=== PATIENT | female | born 1970 | race Caucasian/White ===

== ENCOUNTER 2016-10-20 08:30 | Emergency (ER) | payer OTHER ==
[2016-10-20] MEDS ORDERED: IBUPROFEN 600 MG TAB PO STA (09:12)
[2016-10-20] MEDS ORDERED: ONDANSETRON 4 MG ODT STARTER PACK 2 TAB BTL PO STA (09:23)
[2016-10-20] MEDS ORDERED: ACETAMINOPHEN TAB 500 MG TAB PO STA (09:27)
--- NOTE | 2016-10-20 09:28 | ED ---
General Adult HPI - General Chief complaint: ENT Stated complaint: Throat pain,allergic reaction Time Seen by Provider: 10/20/16 08:57 Source: patient, RN notes reviewed Mode of arrival: ambulatory Limitations: no limitations - History of Present Illness Initial comments: Patient 45-year-old female who presents emergency room today with chief complaint of upper respiratory symptoms over the last 2 days. She does admit that it started 2 days ago with a sore throat. Does admit to some cough congestion. States increased nasal congestion. She states she's not having much drainage. She does admit to body aches and chills. States she was unaware that she had a fever. States she's not had any Tylenol Motrin today. Does admit that she feeling nauseous. Patient denies any other complaints or symptoms. Patient denies any recent fever, chills, shortness of breath, chest pain, back pain, abdominal pain, vomiting, numbness or tingling, dysuria or hematuria, constipation or diarrhea, neck pain or stiffness visual changes, or any other complaints. - Related Data Home Medications Medication Instructions Recorded Confirmed Lisinopril [Zestril] 10 mg PO DAILY 12/22/15 10/20/16 Multivitamins, Thera [Multivitamin] 1 tab PO DAILY 12/22/15 10/20/16 Previous Rx's Medication Instructions Recorded Oseltamivir [Tamiflu] 75 mg PO Q12HR 5 Days 10/20/16 Allergies Allergy/AdvReac Type Severity Reaction Status Date / Time amoxicillin Allergy Swelling Verified 10/20/16 09:07 amoxicillin trihydrate Allergy Swelling Verified 10/20/16 09:07 [From Augmentin] potassium clavulanate Allergy Swelling Verified 10/20/16 09:07 [From Augmentin] codeine AdvReac Unknown Verified 10/20/16 09:07 Review of Systems ROS Statement: Those systems with pertinent positive or pertinent negative responses have been documented in the HPI. ROS Other: All systems not noted in ROS Statement are negative. Past Medical History Past Medical History: No Reported History History of Any Multi-Drug Resistant Organisms: None Reported Past Surgical History: Section Additional Past Surgical History / Comment(s): e-sure ablation Past Psychological History: No Psychological Hx Reported Smoking Status: Former smoker Past Alcohol Use History: None Reported Past Drug Use History: None Reported General Exam - General Exam Comments Initial Comments: General: The patient is awake and alert, in no distress, and does not appear acutely ill. Eye: Pupils are equal, round and reactive to light, extra-ocular movements are intact. No nystagmus. There is normal conjunctiva bilaterally. No signs of icterus. Ears, nose, mouth and throat: There are moist mucous membranes and no oral lesions. Neck: The neck is supple, there is no tenderness or JVD. Cardiovascular: There is a regular rate and rhythm. No murmur, rub or gallop is appreciated. Respiratory: Lungs are clear to auscultation, respirations are non-labored, breath sounds are equal. No wheezes, stridor, rales, or rhonchi. Gastrointestinal: Soft, non-distended, non-tender abdomen without masses or organomegaly noted. There is no rebound or guarding present. No CVA tenderness. Bowel sounds are unremarkable. Musculoskeletal: Normal ROM, no tenderness. Strength 5/5. Sensation intact. Pulses equal bilaterally 2+. Neurological: A&O x 3. CN II-XII intact, There are no obvious motor or sensory deficits. Coordination appears grossly intact. Speech is normal. Skin: Skin is warm and dry and no rashes or lesions are noted. Psychiatric: Cooperative, appropriate mood & affect, normal judgment. Limitations: no limitations Course Vital Signs 10/20/16 10/20/16 08:38 10:44 Temperature 100.8 F H 98.7 F Pulse Rate 102 H 95 Respiratory 22 14 Rate Blood Pressure 128/58 101/53 O2 Sat by Pulse 96 94 L Oximetry Medical Decision Making - Medical Decision Making Patient reexamined the symptoms and signs of distress. Patient influenza negative. Strep test negative. Patient will be covered for influenza with Tamiflu. Advised to follow-up with family doctor next 2 days. Advised to use Tylenol/ibuprofen for pain and fever as needed. Advised return to emergency room if any symptoms increase or worsen. - Lab Data Lab Results 10/20/16 Range/Units 09:30 Influenza Type A RNA Not Detected (Not Detectd) Influenza Type B (PCR) Not Detected (Not Detectd) Group A Strep Rapid Negative (Negative) Disposition Clinical Impression: Influenza Disposition: HOME SELF-CARE Condition: Good Instructions: Influenza (ED) Additional Instructions: Please use medication as discussed. Please follow-up with family doctor in the next 2 days of symptoms have not improved. Please return to emergency room if the symptoms increase or worsen or for any other concerns. Prescriptions: Oseltamivir [Tamiflu] 75 mg PO Q12HR 5 Days Time of Disposition: 11:10
[2016-10-20 11:28] VITALS: BP 119/57; PULSE 97; RESP 15; TEMP 98.4
== END 2016-10-20 11:27 | disposition home or self-care (01) ==
LOC: EC 08:30
DX: J11.1 Influenza due to unidentified influenza virus with other respiratory manifestations (principal); Z87.891 Personal history of nicotine dependence; Z79.899 Other long term (current) drug therapy; Z88.0 Allergy status to penicillin; Z88.5 Allergy status to narcotic agent
CPT/HCPCS: 99283; 87081; 87430; 87502; S0119

== ENCOUNTER 2016-10-21 19:02 | Emergency (ER) | payer OTHER ==
[2016-10-21] MEDS ORDERED: SODIUM CHLORIDE 0.9% 1,000 ML IV STA ×2 (19:23)
[2016-10-21] MEDS ORDERED: methylPREDNISolone SOD SUCCI 125 MG/2 ML VIAL IV STA (19:25)
[2016-10-21] MEDS ORDERED: ACETAMINOPHEN TAB 500 MG TAB PO STA (19:25)
[2016-10-21] MEDS ORDERED: ONDANSETRON 4 MG/2 ML VIAL IVP STA (19:26)
--- NOTE | 2016-10-21 19:26 | ED ---
General Adult HPI - General Chief complaint: Nausea/Vomiting/Diarrhea Stated complaint: near syncope, ent, fever Time Seen by Provider: 10/21/16 19:08 Source: EMS, RN notes reviewed Mode of arrival: EMS Limitations: no limitations - History of Present Illness Initial comments: Patient 45-year-old female who presents emergency room today by EMS, with chief complaint of increased cough congestion over the last 3 days. Patient does admit to sore throat. States hurts when she swallows. Patient mitts increase rhinorrhea and sinus pressure and Headache today. Patient states earlier today sitting on the couch when to get up and experienced increased to lightheadedness dizziness and passed out. Patient states still feeling a little dizzy at this time. Denies any other complaints. Admits that appetites been decreased due to sore throat. - Related Data Home Medications Medication Instructions Recorded Confirmed Lisinopril-Hctz 10-12.5 mg 1 tab PO DAILY 10/21/16 10/21/16 [Zestoretic 10-12.5] Multivitamin [Multivitamins Adult 1 tab PO DAILY 10/21/16 10/21/16 Gummies] Previous Rx's Medication Instructions Recorded Oseltamivir [Tamiflu] 75 mg PO Q12HR 5 Days 10/20/16 Sulfamethox-Tmp 800-160Mg [Bactrim 1 tab PO Q12HR #20 tab 10/21/16 DS 800-160 mg] predniSONE 20 mg PO DIRECTED #11 tab 10/21/16 Allergies Allergy/AdvReac Type Severity Reaction Status Date / Time amoxicillin trihydrate Allergy Anaphylaxis Verified 10/21/16 20:28 [From Augmentin] codeine Allergy Unknown Verified 10/21/16 20:28 Childhood ibuprofen [From Motrin] Allergy Anaphylaxis Verified 10/21/16 20:28 potassium clavulanate Allergy Anaphylaxis Verified 10/21/16 20:28 [From Augmentin] Review of Systems ROS Statement: Those systems with pertinent positive or pertinent negative responses have been documented in the HPI. ROS Other: All systems not noted in ROS Statement are negative. Past Medical History Past Medical History: No Reported History History of Any Multi-Drug Resistant Organisms: None Reported Past Surgical History: Section Additional Past Surgical History / Comment(s): e-sure ablation Past Psychological History: No Psychological Hx Reported Smoking Status: Former smoker Past Alcohol Use History: None Reported Past Drug Use History: None Reported General Exam - General Exam Comments Initial Comments: General: The patient is awake and alert, in no distress, and does not appear acutely ill. Eye: Pupils are equal, round and reactive to light, extra-ocular movements are intact. No nystagmus. There is normal conjunctiva bilaterally. No signs of icterus. Ears, nose, mouth and throat: There are moist mucous membranes and no oral lesions. Neck: The neck is supple, there is no tenderness or JVD. Cardiovascular: There is a regular rate and rhythm. No murmur, rub or gallop is appreciated. Respiratory: Lungs are clear to auscultation, respirations are non-labored, breath sounds are equal. No wheezes, stridor, rales, or rhonchi. Gastrointestinal: Soft, non-distended, non-tender abdomen without masses or organomegaly noted. There is no rebound or guarding present. No CVA tenderness. Bowel sounds are unremarkable. Musculoskeletal: Normal ROM, no tenderness. Strength 5/5. Sensation intact. Pulses equal bilaterally 2+. Neurological: A&O x 3. CN II-XII intact, There are no obvious motor or sensory deficits. Coordination appears grossly intact. Speech is normal. Skin: Skin is warm and dry and no rashes or lesions are noted. Psychiatric: Cooperative, appropriate mood & affect, normal judgment. Limitations: no limitations Course Vital Signs 10/21/16 10/21/16 19:11 21:12 Temperature 100 F H 98.7 F Pulse Rate 113 H 87 Respiratory 20 16 Rate Blood Pressure 132/66 131/61 O2 Sat by Pulse 91 L 95 Oximetry Medical Decision Making - Medical Decision Making Patient reexamined at this time shows no signs of stress. Does admit that she' s feeling better after steroids given here in the emergency room. Patient was given a bolus. Patient's labs been reviewed are unremarkable. Patient's vitals improved. Patient declined EKG. Patient states she is feeling better will be discharged home at this time. Patient will be continued on steroids for inflammation. Patient be placed on antibiotics of Bactrim to cover for possible sinus infection. Patient was advised most likely viral illness. Patient advised follow-up the family doctor over the next 2 days. Advised return here in the emergency room symptoms increase or worsen or for any other concerns. - Lab Data Result diagrams: 10/21/16 19:55 10/21/16 19:55 Lab Results 10/21/16 10/21/16 Range/Units 19:55 19:55 WBC 10.6 (3.8-10.6) k/uL RBC 4.21 (3.80-5.40) m/uL Hgb 12.9 (11.4-16.0) gm/dL Hct 38.1 (34.0-46.0) % MCV 90.6 (80.0-100.0) fL MCH 30.7 (25.0-35.0) pg MCHC 33.9 (31.0-37.0) g/dL RDW 13.2 (11.5-15.5) % Plt Count 177 (150-450) k/uL Neutrophils % 82 % Lymphocytes % 7 % Monocytes % 7 % Eosinophils % 0 % Basophils % 0 % Neutrophils # 8.8 H (1.3-7.7) k/uL Lymphocytes # 0.7 L (1.0-4.8) k/uL Monocytes # 0.8 (0-1.0) k/uL Eosinophils # 0.0 (0-0.7) k/uL Basophils # 0.0 (0-0.2) k/uL Sodium 135 L (137-145) mmol/L Potassium 3.8 (3.5-5.1) mmol/L Chloride 100 (98-107) mmol/L Carbon Dioxide 24 (22-30) mmol/L Anion Gap 11 mmol/L BUN 11 (7-17) mg/dL Creatinine 0.52 (0.52-1.04) mg/dL Est GFR (MDRD) Af Amer >60 (>60 ml/min/1.73 sqM) Est GFR (MDRD) Non-Af >60 (>60 ml/min/1.73 sqM) Glucose 120 H (74-99) mg/dL Calcium 8.6 (8.4-10.2) mg/dL Total Bilirubin 0.5 (0.2-1.3) mg/dL AST 22 (14-36) U/L ALT 35 (9-52) U/L Alkaline Phosphatase 73 (38-126) U/L Total Protein 6.5 (6.3-8.2) g/dL Albumin 3.4 L (3.5-5.0) g/dL Disposition Clinical Impression: Acute sinusitis Disposition: HOME SELF-CARE Condition: Good Instructions: Sinusitis (ED) Additional Instructions: Please use medication as discussed. Please follow-up with family doctor in the next 2 days. Please return to emergency room if the symptoms increase or worsen or for any other concerns. Prescriptions: Sulfamethox-Tmp 800-160Mg [Bactrim DS 800-160 mg] 1 tab PO Q12HR #20 tab predniSONE 20 mg PO DIRECTED #11 tab Time of Disposition: 21:42
[2016-10-21 20:23] LABS: Basophils % (A) 0 %; CH 31.5; CHCM 34.9; Eosinophils % (A) 0 %; HCT 38.1 % (34.0-46.0); HDW 2.73; HGB 12.9 gm/dL (11.4-16.0); Luc # (Auto) 0.34; Luc % (Auto) 3; Lymphocytes # (A) 0.7 k/uL (1.0-4.8); Lymphocytes % (A) 7 %; MCH 30.7 pg (25.0-35.0); MCHC 33.9 g/dL (31.0-37.0); MCV 90.6 fL (80.0-100.0); Mean Platelet Volume 7.1; Monocytes # (A) 0.8 k/uL (0-1.0); Monocytes % (A) 7 %; Neutrophils # (A) 8.8 k/uL (1.3-7.7); Neutrophils % (A) 82 %; RBC 4.21 m/uL (3.80-5.40); RDW 13.2 % (11.5-15.5); WBC 10.6 k/uL (3.8-10.6); WBC (Perox) 11.13
--- NOTE | 2016-10-21 20:24 | XR ---
EXAMINATION TYPE: XR chest 2V DATE OF EXAM: 10/21/2016 8:18 PM COMPARISON: April 26, 2012 HISTORY: Cough and fever TECHNIQUE: Frontal and lateral views of the chest are obtained. FINDINGS: There is no focal air space opacity, pleural effusion, or pneumothorax seen. The cardiac silhouette size is within normal limits. The osseous structures are intact. IMPRESSION: No acute cardiopulmonary process.
[2016-10-21 20:28] LABS: ALT 35 U/L (9-52); AST 22 U/L (14-36); Alkaline Phosphatase 73 U/L (38-126); Anion Gap 11 mmol/L; Blood Urea Nitrogen 11 mg/dL (7-17); Calcium 8.6 mg/dL (8.4-10.2); Carbon Dioxide 24 mmol/L (22-30); Chloride 100 mmol/L (98-107); Glucose 120 mg/dL (74-99); Non-African American GFR(MDRD) >60 (>60 ml/min/1.73 sqM); Potassium 3.8 mmol/L (3.5-5.1); Sodium 135 mmol/L (137-145); Total Bilirubin 0.5 mg/dL (0.2-1.3); Total Protein 6.5 g/dL (6.3-8.2)
[2016-10-21 21:14] VITALS: RESP 16
[2016-10-21] MEDS ORDERED: SULFAMETH-TMP DS STARTER PACK 2 TAB BTL PO STA (21:41)
[2016-10-21 22:15] VITALS: BP 108/56; PULSE 79; TEMP 98.1
== END 2016-10-21 22:16 | disposition home or self-care (01) ==
LOC: EC 19:02
DX: J01.90 Acute sinusitis, unspecified (principal); R42 Dizziness and giddiness; Z87.891 Personal history of nicotine dependence; Z79.899 Other long term (current) drug therapy; Z88.0 Allergy status to penicillin; Z88.5 Allergy status to narcotic agent; Z88.6 Allergy status to analgesic agent
CPT/HCPCS: 99284; 96374; 96375; 96361; 36415; 80053; 85025; 87040; 71020; J2930; J2405

== ENCOUNTER 2017-01-06 12:18 | Emergency (ER) | payer OTHER ==
[2017-01-06 12:27] VITALS: BP 152/71; PULSE 101; RESP 18; TEMP 98
[2017-01-06] MEDS ORDERED: DIPH,PERTUS(ACELL)TETVAC-LF 0.5 ML VIAL IM ONE (12:32)
--- NOTE | 2017-01-06 12:39 | ED ---
General Adult HPI - General Chief complaint: Skin/Abscess/Foreign Body Stated complaint: Fishing Hook In Thumb Time Seen by Provider: 01/06/17 12:28 Source: patient, RN notes reviewed Mode of arrival: ambulatory Limitations: no limitations - History of Present Illness Initial comments: Patient 46-year-old female who presents emergency room today with chief complaint of fishhook injury to the right thumb. She does admit that when she was trying to pull patient with Lizbeth it moved and accidentally got her on the right thumb with the hope. Patient states unsure of her tetanus status. She denies any other complaints or symptoms at this time. Patient denies any recent fever, chills, shortness of breath, chest pain, back pain, abdominal pain , nausea or vomiting, numbness or tingling, dysuria or hematuria, constipation or diarrhea, headaches or visual changes, or any other complaints. - Related Data Home Medications Medication Instructions Recorded Confirmed Lisinopril-Hctz 10-12.5 mg 1 tab PO DAILY 10/21/16 01/06/17 [Zestoretic 10-12.5] Previous Rx's Medication Instructions Recorded Clindamycin HCl [Cleocin] 300 mg PO Q6HR 10 Days 01/06/17 Levofloxacin [Levaquin] 500 mg PO DAILY 7 Days 01/06/17 Allergies Allergy/AdvReac Type Severity Reaction Status Date / Time amoxicillin trihydrate Allergy Anaphylaxis Verified 01/06/17 12:36 [From Augmentin] codeine Allergy Unknown Verified 01/06/17 12:36 Childhood ibuprofen [From Motrin] Allergy Anaphylaxis Verified 01/06/17 12:36 potassium clavulanate Allergy Anaphylaxis Verified 01/06/17 12:36 [From Augmentin] Review of Systems ROS Statement: Those systems with pertinent positive or pertinent negative responses have been documented in the HPI. ROS Other: All systems not noted in ROS Statement are negative. Past Medical History Past Medical History: No Reported History History of Any Multi-Drug Resistant Organisms: None Reported Past Surgical History: Section Additional Past Surgical History / Comment(s): e-sure ablation Past Psychological History: No Psychological Hx Reported Smoking Status: Former smoker Past Alcohol Use History: None Reported Past Drug Use History: None Reported General Exam - General Exam Comments Initial Comments: General: The patient is awake and alert, in no distress, and does not appear acutely ill. Eye: Pupils are equal, round and reactive to light, extra-ocular movements are intact. No nystagmus. There is normal conjunctiva bilaterally. No signs of icterus. Ears, nose, mouth and throat: There are moist mucous membranes and no oral lesions. Neck: The neck is supple, there is no tenderness or JVD. Cardiovascular: There is a regular rate and rhythm. No murmur, rub or gallop is appreciated. Respiratory: Lungs are clear to auscultation, respirations are non-labored, breath sounds are equal. No wheezes, stridor, rales, or rhonchi. Musculoskeletal: Normal ROM. [place] injury to the volar aspect of the right thumb. Strength 5/5. Sensation intact. Pulses equal bilaterally 2+. Neurological: A&O x 3. CN II-XII intact, There are no obvious motor or sensory deficits. Coordination appears grossly intact. Speech is normal. Skin: Skin is warm and dry and no rashes or lesions are noted. Psychiatric: Cooperative, appropriate mood & affect, normal judgment. Limitations: no limitations Course Vital Signs 01/06/17 12:23 Temperature 98 F Pulse Rate 101 H Respiratory 18 Rate Blood Pressure 152/71 O2 Sat by Pulse 94 L Oximetry Procedures - Procedures Initial comment: Patient's right thumb was anesthetized locally with 1% lidocaine at the head of the metacarpal. Patient's fishhook monica pushed through the skin can't and then look removed. Patient tolerated procedure well. Area was soaked in Betadine mixture. Patient's tetanus updated. Medical Decision Making - Medical Decision Making Patient does have ALLERGIES to amoxicillin and will be treated with a accommodation Levaquin and clindamycin. Advised watch for any signs of infection. Tetanus is been updated here in the emergency room. Disposition Clinical Impression: Alanreed injury to finger Disposition: HOME SELF-CARE Condition: Good Instructions: Puncture Wound (ED) Additional Instructions: Please use antibiotic as prescribed. Please watch for any signs of infection which may include increased pain, swelling, redness, fever or chills. Please return to emergency room for any sign of infection or any other concerns. Prescriptions: Clindamycin HCl [Cleocin] 300 mg PO Q6HR 10 Days Levofloxacin [Levaquin] 500 mg PO DAILY 7 Days Referrals: Clara Kang MD [Primary Care Provider] - 1-2 days Time of Disposition: 13:09
== END 2017-01-06 13:08 | disposition home or self-care (01) ==
LOC: EC 12:18
DX: S60.351A Superficial foreign body of right thumb, initial encounter (principal); Z87.891 Personal history of nicotine dependence; Z79.899 Other long term (current) drug therapy; Z88.0 Allergy status to penicillin; Z88.5 Allergy status to narcotic agent; Z88.6 Allergy status to analgesic agent; W45.8XXA Other foreign body or object entering through skin, initial encounter; Y93.89 Activity, other specified; Z23 Encounter for immunization
CPT/HCPCS: 90471; 90715; 99283

== ENCOUNTER → 2017-10-06 | Outpatient (CLI) | payer OTHER ==
[2017-10-06 08:17] LABS: Basophils # (A) 0.1 k/uL (0-0.2); Basophils % (A) 1 %; Eosinophils # (A) 0.3 k/uL (0-0.7); Eosinophils % (A) 3 %; HCT 43.4 % (34.0-46.0); Lymphocytes % (A) 21 %; MCH 30.7 pg (25.0-35.0); MCHC 34.5 g/dL (31.0-37.0); Mean Platelet Volume 7.6; Monocytes # (A) 0.5 k/uL (0-1.0); Monocytes % (A) 5 %; Neutrophils # (A) 6.6 k/uL (1.3-7.7); Neutrophils % (A) 67 %; Platelet Count 202 k/uL (150-450); RBC 4.88 m/uL (3.80-5.40); RDW 13.2 % (11.5-15.5); WBC 9.7 k/uL (3.8-10.6)
[2017-10-06 08:26] LABS: ALT 25 U/L (9-52); AST 17 U/L (14-36); Albumin 3.9 g/dL (3.5-5.0); Alkaline Phosphatase 79 U/L (38-126); Anion Gap 10 mmol/L; Blood Urea Nitrogen 19 mg/dL (7-17); Calcium 9.6 mg/dL (8.4-10.2); Carbon Dioxide 27 mmol/L (22-30); Chloride 102 mmol/L (98-107); Cholesterol 161 mg/dL (<200); Glucose 102 mg/dL (74-99); HDL Cholesterol 47 mg/dL (40-60); LDL Cholesterol,Calculated 60 mg/dL (0-99); Potassium 4.3 mmol/L (3.5-5.1); Sodium 139 mmol/L (137-145); Total Bilirubin 0.4 mg/dL (0.2-1.3); Total Protein 6.9 g/dL (6.3-8.2); Triglycerides 268 mg/dL (<150)
== END | disposition home or self-care (01) ==
LOC: LABWHC1 07:16
PROVIDERS: ATTEND Family Medicine
DX: E78.5 Hyperlipidemia, unspecified (principal); I10 Essential (primary) hypertension
CPT/HCPCS: 36415; 80053; 80061; 84443; 85025

== ENCOUNTER → 2018-01-03 | Outpatient (CLI) | payer OTHER ==
--- NOTE | 2018-01-04 15:46 | ECHOF ---
Referral Reason:I10 Hypertension, I51.7 Cardiomegaly MEASUREMENTS -------- HEIGHT: 167.6 cm WEIGHT: 77.1 kg BP: IVSd: 1.5 cm (0.6 - 1.1) LVIDd: 3.3 cm (3.9 - 5.3) LVPWd: 1.5 cm (0.6 - 1.1) IVSs: 1.8 cm LVIDs: 1.7 cm LVPWs: 1.6 cm Ao Diam: 3.5 cm (2.0 - 3.7) AV Cusp: 1.7 cm (1.5 - 2.6) LA Diam: 3.8 cm (2.7 - 3.8) MV EXCURSION: 18.742 mm (> 18.000) MV EF SLOPE: 87 mm/s (70 - 150) EPSS: 0.5 cm MV E Brennan: 1.07 m/s MV DecT: 208 ms MV A Brennan: 1.10 m/s MV E/A Ratio: 0.97 RAP: 5.00 mmHg RVSP: 13.49 mmHg FINDINGS -------- Sinus rhythm. This was a technically good study. The left ventricular size is normal. There is moderate concentric left ventricular hypertrophy. O verall left ventricular systolic function is normal with, an EF between 55 - 60 %. The right ventricle is normal in size and function. The left atrium is normal in size. The right atrium is normal in size. The aortic valve is trileaflet, and appears structurally normal. No aortic stenosis or regurgitation. There is trace mitral regurgitation. Trace tricuspid regurgitation present. Pulmonic valve appears structurally normal. The aortic root size is normal. Normal inferior vena cava with normal inspiratory collapse consistent with estimated right atrial pre ssure of 5 mmHg. The pericardium is normal. CONCLUSIONS -------- 1. Sinus rhythm. 2. This was a technically good study. 3. The left ventricular size is normal. 4. There is moderate concentric left ventricular hypertrophy. 5. Overall left ventricular systolic function is normal with, an EF between 55 - 60 %. 6. The right ventricle is normal in size and function. 7. The left atrium is normal in size. 8. The right atrium is normal in size. 9. The aortic valve is trileaflet, and appears structurally normal. No aortic stenosis or regurgitati on. 10. There is trace mitral regurgitation. 11. Trace tricuspid regurgitation present. 12. Pulmonic valve appears structurally normal. 13. The aortic root size is normal. 14. Normal inferior vena cava with normal inspiratory collapse consistent with estimated right atrial pressure of 5 mmHg. 15. The pericardium is normal. SQUAD BOSS: Mandie Cardozo RDCS
== END | disposition home or self-care (01) ==
LOC: RADECHMAIN 13:03
PROVIDERS: ATTEND Family Medicine
DX: Z01.818 Encounter for other preprocedural examination (principal); I51.7 Cardiomegaly; I10 Essential (primary) hypertension
CPT/HCPCS: 93306

== ENCOUNTER 2018-10-16 10:24 | Observation (INO) | payer OTHER ==
[2018-10-16] MEDS ORDERED: ASPIRIN 81 MG PO STA (10:46)
[2018-10-16] MEDS ORDERED: NITROGLYCERIN SL TABS 0.4 MG TAB SUBLINGUAL STA ×3 (10:46)
--- NOTE | 2018-10-16 10:49 | ED ---
General Adult HPI - General Chief complaint: Chest Pain Stated complaint: Chest discomfort Time Seen by Provider: 10/16/18 10:36 Source: patient, RN notes reviewed Mode of arrival: ambulatory Limitations: no limitations - History of Present Illness Initial comments: Patient is a pleasant 47-year-old female presenting to the emergency Department with complaints of chest discomfort. Onset of symptoms was 1 AM. Symptoms just lasted for a short time then resolved. Symptoms then returned around 6 AM and has been steady since that time. Discomfort feels like burning in her left upper chest. Patient states she does feel somewhat short of breath, that she can't get the last breath of air in. No associated nausea or diaphoresis. No radiation. No history of similar symptoms previously. - Related Data Home Medications Medication Instructions Recorded Confirmed Atorvastatin [Lipitor] 10 mg PO DAILY 10/16/18 10/16/18 Lisinopril-Hctz 20-25 mg 1 tab PO DAILY 10/16/18 10/16/18 [Zestoretic 20-25] buPROPion HCL [buPROPion HCL SR] 150 mg PO DIRECTED 10/16/18 10/16/18 Allergies Allergy/AdvReac Type Severity Reaction Status Date / Time amoxicillin trihydrate Allergy Anaphylaxis Verified 10/16/18 10:38 [From Augmentin] codeine Allergy Unknown Verified 10/16/18 10:38 Childhood ibuprofen [From Motrin] Allergy Anaphylaxis Verified 10/16/18 10:38 potassium clavulanate Allergy Anaphylaxis Verified 10/16/18 10:38 [From Augmentin] Review of Systems ROS Statement: Those systems with pertinent positive or pertinent negative responses have been documented in the HPI. ROS Other: All systems not noted in ROS Statement are negative. Constitutional: Denies: fever Eyes: Denies: eye pain ENT: Denies: ear pain Respiratory: Reports: dyspnea. Denies: cough Cardiovascular: Reports: chest pain Endocrine: Denies: fatigue Gastrointestinal: Denies: abdominal pain, nausea Genitourinary: Denies: dysuria Musculoskeletal: Denies: back pain Skin: Denies: rash Neurological: Denies: weakness Past Medical History Past Medical History: No Reported History History of Any Multi-Drug Resistant Organisms: None Reported Past Surgical History: Section Additional Past Surgical History / Comment(s): e-sure ablation Past Psychological History: No Psychological Hx Reported Smoking Status: Former smoker Past Alcohol Use History: None Reported Past Drug Use History: None Reported General Exam Limitations: no limitations General appearance: alert, anxious Head exam: Present: normocephalic Eye exam: Present: normal appearance, PERRL ENT exam: Present: normal oropharynx Neck exam: Present: normal inspection Respiratory exam: Present: normal lung sounds bilaterally Cardiovascular Exam: Present: regular rate, normal rhythm Expanded Peripheral pulses: 2+: Radial (R), Radial (L), Posterior Tibialis (R), Posterior Tibialis (L) GI/Abdominal exam: Present: soft. Absent: tenderness Extremities exam: Present: normal inspection. Absent: pedal edema, calf tenderness Neurological exam: Present: alert Psychiatric exam: Present: anxious Skin exam: Present: normal color Course Vital Signs 10/16/18 10/16/18 10/16/18 10:25 11:30 12:00 Temperature 98.2 F Pulse Rate 81 Respiratory 18 18 19 Rate Blood Pressure 123/76 108/83 118/61 O2 Sat by Pulse 97 90 L 98 Oximetry EKG Findings - EKG Comments: EKG Findings:: Normal sinus rhythm at 77. MI 164. QRS 96. QT 408. QTC 461. Left axis. Inferior Q waves. No acute ST change. Medical Decision Making - Medical Decision Making Patient reevaluated and resting comfortably in bed. Patient no longer appears anxious. Symptoms have significantly improved with nitroglycerin and discomfort is only very mild at this point. Patient still feels slightly short of breath. Patient and family are updated on results and plan. Case was discussed in detail with Dr. orona, who will admit covering for Dr. Kang. - Lab Data Result diagrams: 10/16/18 11:17 10/16/18 10:40 Lab Results 10/16/18 10/16/18 10/16/18 Range/Units 10:40 10:40 10:40 WBC (3.8-10.6) k/uL RBC (3.80-5.40) m/uL Hgb (11.4-16.0) gm/dL Hct (34.0-46.0) % MCV (80.0-100.0) fL MCH (25.0-35.0) pg MCHC (31.0-37.0) g/dL RDW (11.5-15.5) % Plt Count (150-450) k/uL Neutrophils % % Lymphocytes % % Monocytes % % Eosinophils % % Basophils % % Neutrophils # (1.3-7.7) k/uL Lymphocytes # (1.0-4.8) k/uL Monocytes # (0-1.0) k/uL Eosinophils # (0-0.7) k/uL Basophils # (0-0.2) k/uL PT 9.7 (9.0-12.0) sec INR 0.9 (<1.2) APTT 19.3 L (22.0-30.0) sec D-Dimer 0.29 (<0.60) mg/L FEU Sodium 139 (137-145) mmol/L Potassium 4.8 (3.5-5.1) mmol/L Chloride 104 (98-107) mmol/L Carbon Dioxide 22 (22-30) mmol/L Anion Gap 13 mmol/L BUN 14 (7-17) mg/dL Creatinine 0.46 L (0.52-1.04) mg/dL Est GFR (CKD-EPI)AfAm >90 (>60 ml/min/1.73 sqM) Est GFR (CKD-EPI)NonAf >90 (>60 ml/min/1.73 sqM) Glucose 88 (74-99) mg/dL Calcium 10.4 H (8.4-10.2) mg/dL Magnesium 1.8 (1.6-2.3) mg/dL Total Bilirubin 1.2 (0.2-1.3) mg/dL AST 42 H (14-36) U/L ALT 26 (9-52) U/L Alkaline Phosphatase 73 (38-126) U/L Troponin I <0.012 (0.000-0.034) ng/mL NT-Pro-B Natriuret Pep pg/mL Total Protein 8.2 (6.3-8.2) g/dL Albumin 4.7 (3.5-5.0) g/dL 10/16/18 10/16/18 Range/Units 11:17 11:17 WBC 7.8 (3.8-10.6) k/uL RBC 4.78 (3.80-5.40) m/uL Hgb 14.6 (11.4-16.0) gm/dL Hct 43.0 (34.0-46.0) % MCV 89.9 (80.0-100.0) fL MCH 30.6 (25.0-35.0) pg MCHC 34.0 (31.0-37.0) g/dL RDW 13.6 (11.5-15.5) % Plt Count 232 (150-450) k/uL Neutrophils % 58 % Lymphocytes % 27 % Monocytes % 6 % Eosinophils % 4 % Basophils % 1 % Neutrophils # 4.5 (1.3-7.7) k/uL Lymphocytes # 2.1 (1.0-4.8) k/uL Monocytes # 0.5 (0-1.0) k/uL Eosinophils # 0.3 (0-0.7) k/uL Basophils # 0.1 (0-0.2) k/uL PT (9.0-12.0) sec INR (<1.2) APTT (22.0-30.0) sec D-Dimer (<0.60) mg/L FEU Sodium (137-145) mmol/L Potassium (3.5-5.1) mmol/L Chloride (98-107) mmol/L Carbon Dioxide (22-30) mmol/L Anion Gap mmol/L BUN (7-17) mg/dL Creatinine (0.52-1.04) mg/dL Est GFR (CKD-EPI)AfAm (>60 ml/min/1.73 sqM) Est GFR (CKD-EPI)NonAf (>60 ml/min/1.73 sqM) Glucose (74-99) mg/dL Calcium (8.4-10.2) mg/dL Magnesium (1.6-2.3) mg/dL Total Bilirubin (0.2-1.3) mg/dL AST (14-36) U/L ALT (9-52) U/L Alkaline Phosphatase (38-126) U/L Troponin I (0.000-0.034) ng/mL NT-Pro-B Natriuret Pep 29 pg/mL Total Protein (6.3-8.2) g/dL Albumin (3.5-5.0) g/dL - Radiology Data Radiology results: image reviewed (x-ray shows no acute process) Disposition Clinical Impression: Chest pain Disposition: ADMITTED IP TO THIS [facility] Is patient prescribed a controlled substance at d/c from ED?: No Referrals: Clara Kang MD [Primary Care Provider] - 1-2 days Decision Time: 12:43
[2018-10-16 11:10] LABS: ALT 26 U/L (9-52); AST 42 U/L (14-36); Albumin 4.7 g/dL (3.5-5.0); Alkaline Phosphatase 73 U/L (38-126); Anion Gap 13 mmol/L; Blood Urea Nitrogen 14 mg/dL (7-17); Calcium 10.4 mg/dL (8.4-10.2); Carbon Dioxide 22 mmol/L (22-30); Chloride 104 mmol/L (98-107); Glucose 88 mg/dL (74-99); Magnesium 1.8 mg/dL (1.6-2.3); Sodium 139 mmol/L (137-145); Total Bilirubin 1.2 mg/dL (0.2-1.3); Total Protein 8.2 g/dL (6.3-8.2)
[2018-10-16 11:15] LABS: Potassium 4.8 mmol/L (3.5-5.1)
[2018-10-16 11:26] LABS: Basophils # (A) 0.1 k/uL (0-0.2); Basophils % (A) 1 %; Eosinophils # (A) 0.3 k/uL (0-0.7); Eosinophils % (A) 4 %; HGB 14.6 gm/dL (11.4-16.0); Lymphocytes # (A) 2.1 k/uL (1.0-4.8); Lymphocytes % (A) 27 %; MCH 30.6 pg (25.0-35.0); MCV 89.9 fL (80.0-100.0); Monocytes # (A) 0.5 k/uL (0-1.0); Monocytes % (A) 6 %; Neutrophils # (A) 4.5 k/uL (1.3-7.7); Neutrophils % (A) 58 %; Platelet Count 232 k/uL (150-450); RBC 4.78 m/uL (3.80-5.40); RDW 13.6 % (11.5-15.5); WBC 7.8 k/uL (3.8-10.6)
--- NOTE | 2018-10-16 11:35 | XR ---
EXAMINATION TYPE: XR chest 2V DATE OF EXAM: 10/16/2018 COMPARISON: NONE HISTORY: Chest pain TECHNIQUE: Frontal and lateral views of the chest are obtained. FINDINGS: There is no focal air space opacity. No evidence for pneumothorax. No pleural effusion. The cardiac silhouette size is within normal limits. The osseous structures are grossly intact. IMPRESSION: 1. No acute cardiopulmonary process.
[2018-10-16 11:38] LABS: D-Dimer 0.29 mg/L FEU (<0.60); INR 0.9 (<1.2); Prothrombin Time 9.7 sec (9.0-12.0)
[2018-10-16 11:39] LABS: Partial Thromboplastin Time 19.3 sec (22.0-30.0)
[2018-10-16] MEDS ORDERED: NITROGLYCERIN SL TABS 0.4 MG TAB SUBLINGUAL PRN (12:43)
[2018-10-16] MEDS ORDERED: ACETAMINOPHEN TAB 325 MG TAB PO STA (14:59)
--- NOTE | 2018-10-16 15:00 | P.HPIM ---
History of Present Illness H&P Date: 10/16/18 The patient is a 47-year-old female with a PMH of tobacco abuse, hypertension, and hyperlipidemia who presented to the ED for sudden onset of left-sided chest pain. The patient notes that she was in her usual state of health until 1 AM last night when she suddenly woke up with a left-sided burning like chest pain. The pain subsided within a few minutes however then recurred again at 6 AM at which time it was 7-8 out of 10, nonradiating, nonpleuritic, and had changed from a burning to an aching sensation. The pain was associated with some shortness of breath but the patient denied nausea, vomiting, diaphoresis, palpitations. Patient further denied cough, fever, chills. She notes that she doesn't have a history of GERD and no family history of premature coronary artery disease. The patient previously smoked half pack per day for 20-30 years and quit a few weeks ago. At time of the interview, the patient noted that her pain had improved significantly to a 3 out of 10. In the emergency room, the patient underwent an extensive evaluation, with troponin less than 0.012, proBNP 29, d-dimer within normal limits, WBC count 7.8, hemoglobin 14.6. Chest x-ray was unremarkable and EKG revealed normal sinus rhythm at 77 bpm with no acute ischemic changes noted. Past Medical History Past Medical History: Hyperlipidemia, Hypertension Additional Past Medical History / Comment(s): UTI years ago. History of Any Multi-Drug Resistant Organisms: None Reported Past Surgical History: Section, Uterine Ablation Additional Past Surgical History / Comment(s): e-sure ablation Past Anesthesia/Blood Transfusion Reactions: No Reported Reaction Smoking Status: Former smoker - Past Family History Mother Family Medical History: Coronary Artery Disease (CAD), Myocardial Infarction ([place]) Additional Family Medical History / Comment(s): Mother had a [place] at the age of 56yrs and has a cardiac stent. Father Family Medical History: No Reported History Additional Family Medical History / Comment(s): Father is healthy. Medications and Allergies Home Medications Medication Instructions Recorded Confirmed Type Atorvastatin [Lipitor] 10 mg PO DAILY 10/16/18 10/16/18 History Lisinopril-Hctz 20-25 mg 1 tab PO DAILY 10/16/18 10/16/18 History [Zestoretic 20-25] buPROPion HCL [buPROPion HCL SR] 150 mg PO DIRECTED 10/16/18 10/16/18 History Allergies Allergy/AdvReac Type Severity Reaction Status Date / Time amoxicillin trihydrate Allergy Anaphylaxis Verified 10/16/18 10:38 [From Augmentin] codeine Allergy Unknown Verified 10/16/18 10:38 Childhood ibuprofen [From Motrin] Allergy Anaphylaxis Verified 10/16/18 10:38 potassium clavulanate Allergy Anaphylaxis Verified 10/16/18 10:38 [From Augmentin] Physical Exam Vitals: Vital Signs Temp Pulse Resp BP Pulse Ox 10/16/18 13:00 17 111/64 96 10/16/18 12:30 18 114/77 93 L 10/16/18 12:00 19 118/61 98 10/16/18 11:30 18 108/83 90 L 10/16/18 10:25 98.2 F 81 18 123/76 97 Intake and Output 10/15/18 10/16/18 10/16/18 22:59 06:59 14:59 Other: Weight 117.48 kg General: non toxic, no distress, appears at stated age, morbidly obese Derm: no unusual rashes/lesions no unusual ecchymoses, warm, dry Head: atraumatic, normocephalic, symmetric Eyes: EOMI, no lid lag, anicteric sclera, pupils equal round reactive to light ENT: Nose and ears atraumatic, no thrush, no pharyngeal erythema Neck: No thyromegaly, no cervical lymphadenopathy, trachea midline, supple Mouth: no lip lesion, mucus membranes moist Cardiovascular: S1S2 reg, no murmur, positive posterior tibial pulse bilateral, no edema, capillary refill less than 2 seconds Lungs: CTA bilateral, no rhonchi, no rales , no accessory muscle use Abdominal: soft, nontender to palpation, no guarding, no appreciable organomegaly, normal bowel sounds Ext: no gross muscle atrophy, muscle strength 5 out of 5 in all 4 extremities grossly, no contractures, Neuro: CN II-XI grossly intact, light touch intact all 4 extremities, finger to nose within normal limits, Psych: Alert, oriented, appropriate affect Results CBC & Chem 7: 10/16/18 11:17 10/16/18 10:40 Labs: Abnormal Lab Results - Last 24 Hours (Table) 10/16/18 10/16/18 Range/Units 10:40 10:40 APTT 19.3 L (22.0-30.0) sec Creatinine 0.46 L (0.52-1.04) mg/dL Calcium 10.4 H (8.4-10.2) mg/dL AST 42 H (14-36) U/L Thrombosis Risk Factor Assmnt - Choose All That Apply Any of the Below Risk Factors Present?: Yes Each Factor Represents 1 point: Age 41-60 years, Obesity (BMI >25) Other Risk Factors: No Other congenital or acquired thrombophilia - If yes, enter type in comment: No Thrombosis Risk Factor Assessment Total Risk Factor Score: 2 Thrombosis Risk Factor Assessment Level: Low Risk Assessment and Plan Plan: Chest pain, rule out ACS -Trend troponin -Cardiology consult -Cardiac monitoring -Continue with aspirin, nitroglycerin when necessary, statin Hypertension, hyperlipidemia -Resume home medications DVT//GI prophylaxis -Heparin -Protonix The patient is admitted with an anticipated less than 2 midnight stay for evaluation of chest pain CODE STATUS:Full-Code Discussed with: Patient Anticipated discharge date: 10/17/[address]: Home A total of 35 minutes was spent on the care of this complex patient more than 50% of the time was spent in counseling and care coordination.
[2018-10-16] MEDS: NITROGLYCERIN OINT 1 INCH/GM PACKET TOPICAL SCH (18:38)
[2018-10-17] MEDS: NITROGLYCERIN OINT 1 INCH/GM PACKET TOPICAL SCH ×2 (01:18→05:58)
[2018-10-17 03:00] LABS: Cholesterol 194 mg/dL (<200); HDL Cholesterol 41 mg/dL (40-60); LDL Cholesterol,Calculated 93 mg/dL (0-99); Triglycerides 300 mg/dL (<150)
[2018-10-17 04:13] VITALS: RESP 18
[2018-10-17] MEDS ORDERED: LISINOPRIL-HCTZ 20-25 MG 1 EACH TAB PO SCH (09:00)
[2018-10-17] MEDS ORDERED: ATORVASTATIN 10 MG TAB PO SCH (09:00)
[2018-10-17] MEDS ORDERED: ASPIRIN 325 MG TAB PO SCH (09:00)
[2018-10-17 12:08] VITALS: BP 126/84; PULSE 100; TEMP 97.5
--- NOTE | 2018-10-17 12:36 | P.CRDCN ---
History of Present Illness History of present illness: This is a pleasant 47 year old female past medical history significant for hypertension, dyslipidemia and chronic nicotine dependence. She denies history of coronary artery disease and does not follow with a production control clerk for any reason. We've been asked to see her in consultation secondary to chest discomfort. She states she woke up 2 nights ago with symptoms of burning in the left precordial region associated with shortness of breath. She sat up in bed for a couple of hours and ultimately her symptoms subsided and she was able to fall back asleep. She woke up in the morning with similar type burning in the chest and shortness of breath. There is no aggravating factors that she can specify. She denies radiation to the back, down the arm, into the neck or jaw. She denies associated dizziness, nausea, vomiting, palpitations or diaphoresis. Upon arrival to the emergency department she was continuing to have discomfort. Ultimately went away on its own. She is seen and examined resting comfortably in bed and then no return of chest discomfort since arriving at the hospital. EKG reveals sinus mechanism with no acute ST or T wave abnormalities noted. Chest x-ray is negative for acute cardiopulmonary process. Laboratory data reviewed, cardiac enzymes negative 3, d-dimer is normal, creatinine 0.46 and LDL is 93. Current cardiac medications include Zestoretic 20/25 mg daily and atorvastatin 10 mg daily. Most recently last year in December she underwent an echocardiogram which revealed preserved left ventricular systolic function with ejection fraction 55-60% with no significant valvular abnormalities noted. At the time of my exam: CONSTITUTIONAL: Denies fever. Denies chills. EYES: Denies blurred vision. Denies vision changes. Denies eye pain. EARS, NOSE, MOUTH & THROAT: Denies headache. Denies sore throat. Denies ear pain. CARDIOVASCULAR: Denies chest pain. Denies shortness of breath. Denies orthopnea. Denies PND. Denies palpitations. RESPIRATORY: Denies cough. GASTROINTESTINAL: Denies abdominal pain. Denies diarrhea. Denies constipation. Denies nausea. Denies vomiting. MUSCULOSKELETAL: Denies myalgias. INTEGUMENTARY: Denies pruitis. Denies rash. NEUROLOGIC: Denies numbness. Denies tingling. Denies weakness. PSYCHIATRIC: Denies anxiety. Denies depression. ENDOCRINE: Denies fatigue. Denies weight change. Denies polydipsia. Denies polyurina. GENITOURINARY: Denies burning, hematuria or urgency with micturation. HEMATOLOGIC: Denies history of anemia. Denies bleeding. Blood pressure 126/84 heart rate 100 afebrile maintaining oxygen saturation on room air GENERAL: This is a 47-year-old female in no apparent distress at the time of my examination. Morbidly obese. HEENT: Head is atraumatic, normocephalic. Pupils are equal, round. Sclerae anicteric. Conjunctivae are clear. Mucous membranes of the mouth are moist. Neck is supple. There is no jugular venous distention. No carotid bruit is heard. LUNGS: Clear to auscultation no wheezes, rales or rhonchi. No chest wall tenderness is noted on palpation or with deep breathing. HEART: Regular rate and rhythm without murmurs, rubs or gallops. S1 and S2 heard. ABDOMEN: Soft, nontender. Bowel sounds are heard. No organomegaly noted. EXTREMITIES: No evidence of peripheral edema and no calf tenderness noted. VASCULAR: Radial and dorsalis pedis pulses palpated, no evidence of clubbing. NEUROLOGIC: Patient is awake, alert and oriented x3. ASSESSMENT Chest pain, atypical for angina. An acute coronary event has been ruled out with no EKG evidence of ischemia and negative cardiac enzymes. Hypertension Dyslipidemia Chronic nicotine dependence, the patient states she has not smoked for one week. Morbid obesity, BMI 41 PLAN An acute coronary event has been ruled out with no EKG evidence of ischemia and negative cardiac enzymes. Perform stress echocardiogram to assess for stress-induced cardiac ischemia. If abnormal we will consider coronary angiography. Placed on modifications recommended in the form of smoking cessation as well as diet and exercise for weight loss. If stress test is normal she is stable from a cardiac perspective. Thank you kindly for this consultation. Nurse Practitioner note has been reviewed, I agree with a documented findings and plan of care. Patient was seen and examined. Past Medical History Past Medical History: Hyperlipidemia, Hypertension Additional Past Medical History / Comment(s): UTI years ago. History of Any Multi-Drug Resistant Organisms: None Reported Past Surgical History: Section, Uterine Ablation Additional Past Surgical History / Comment(s): e-sure ablation Past Anesthesia/Blood Transfusion Reactions: No Reported Reaction Smoking Status: Former smoker - Past Family History Mother Family Medical History: Coronary Artery Disease (CAD), Myocardial Infarction ( [place]) Additional Family Medical History / Comment(s): Mother had a [place] at the age of 56yrs and has a cardiac stent. Father Family Medical History: No Reported History Additional Family Medical History / Comment(s): Father is healthy. Medications and Allergies Home Medications Medication Instructions Recorded Confirmed Type Atorvastatin [Lipitor] 10 mg PO DAILY 10/16/18 10/16/18 History Lisinopril-Hctz 20-25 mg 1 tab PO DAILY 10/16/18 10/16/18 History [Zestoretic 20-25] buPROPion HCL [buPROPion HCL SR] 150 mg PO DIRECTED 10/16/18 10/16/18 History Allergies Allergy/AdvReac Type Severity Reaction Status Date / Time amoxicillin trihydrate Allergy Anaphylaxis Verified 10/16/18 10:38 [From Augmentin] codeine Allergy Unknown Verified 10/16/18 10:38 Childhood ibuprofen [From Motrin] Allergy Anaphylaxis Verified 10/16/18 10:38 potassium clavulanate Allergy Anaphylaxis Verified 10/16/18 10:38 [From Augmentin] Physical Exam Vitals: Vital Signs Temp Pulse Pulse Resp BP BP BP 10/17/18 07:35 98.0 F 78 18 112/70 10/17/18 04:00 97.8 F 76 18 106/56 10/17/18 03:46 16 10/16/18 23:51 98.4 F 80 16 111/57 10/16/18 23:42 64 16 10/16/18 20:00 97.6 F 64 16 126/75 10/16/18 19:47 79 18 10/16/18 18:16 97.8 F 79 18 114/73 10/16/18 18:05 98.1 F 64 18 120/76 10/16/18 17:00 80 22 114/71 10/16/18 16:30 82 18 105/57 10/16/18 16:00 87 17 112/65 10/16/18 15:30 81 19 116/80 10/16/18 15:00 82 17 121/69 10/16/18 14:30 87 16 123/76 10/16/18 14:00 78 19 117/73 10/16/18 13:30 18 107/67 03/26/19 13:00 17 111/64 10/16/18 12:30 18 114/77 10/16/18 12:00 19 118/61 10/16/18 11:30 18 108/83 10/16/18 10:25 98.2 F 81 18 123/76 Pulse Ox 10/17/18 07:35 96 10/17/18 04:00 94 L 10/17/18 03:46 10/16/18 23:51 95 10/16/18 23:42 10/16/18 20:00 93 L 10/16/18 19:47 10/16/18 18:16 94 L 10/16/18 18:05 95 10/16/18 17:00 92 L 10/16/18 16:30 96 10/16/18 16:00 96 10/16/18 15:30 91 L 10/16/18 15:00 94 L 10/16/18 14:30 92 L 10/16/18 14:00 90 L 10/16/18 13:30 94 L 10/16/18 13:00 96 10/16/18 12:30 93 L 10/16/18 12:00 98 10/16/18 11:30 90 L 10/16/18 10:25 97 Intake and Output 10/16/18 10/17/18 10/17/18 22:59 06:59 14:59 Intake Total 240 Balance 240 Intake: Oral 240 Other: Voiding Method Toilet Toilet # Voids 2 2 Results 10/16/18 11:17 10/16/18 10:40 Cardiac Enzymes 10/16/18 10/16/18 10/16/18 Range/Units 10:40 10:40 16:39 AST 42 H (14-36) U/L Troponin I <0.012 <0.012 (0.000-0.034) ng/mL 10/16/18 Range/Units 22:10 AST (14-36) U/L Troponin I <0.012 (0.000-0.034) ng/mL Coagulation 10/16/18 Range/Units 10:40 PT 9.7 (9.0-12.0) sec APTT 19.3 L (22.0-30.0) sec Lipids 10/16/18 Range/Units 10:40 Triglycerides 300 H (<150) mg/dL Cholesterol 194 (<200) mg/dL HDL Cholesterol 41 (40-60) mg/dL CBC 10/16/18 Range/Units 11:17 WBC 7.8 (3.8-10.6) k/uL RBC 4.78 (3.80-5.40) m/uL Hgb 14.6 (11.4-16.0) gm/dL Hct 43.0 (34.0-46.0) % Plt Count 232 (150-450) k/uL Comprehensive Metabolic Panel 10/16/18 Range/Units 10:40 Sodium 139 (137-145) mmol/L Potassium 4.8 (3.5-5.1) mmol/L Chloride 104 (98-107) mmol/L Carbon Dioxide 22 (22-30) mmol/L BUN 14 (7-17) mg/dL Creatinine 0.46 L (0.52-1.04) mg/dL Glucose 88 (74-99) mg/dL Calcium 10.4 H (8.4-10.2) mg/dL AST 42 H (14-36) U/L ALT 26 (9-52) U/L Alkaline Phosphatase 73 (38-126) U/L Total Protein 8.2 (6.3-8.2) g/dL Albumin 4.7 (3.5-5.0) g/dL Current Medications Generic Name Dose Route Start Last Admin Trade Name Freq PRN Reason Stop Dose Admin Aspirin 325 mg 10/17/18 09:00 Aspirin PO DAILY [facility] Nitroglycerin 1 inch 10/16/18 18:00 10/17/18 05:58 Nitro-Bid Oint TOPICAL Not Given Q6HR [facility] Nitroglycerin 0.4 mg 10/16/18 12:43 Nitrostat SUBLINGUAL Q5M PRN Chest Pain Sodium Chloride 10 ml 10/16/18 21:00 10/16/18 19:36 Saline Flush IV 10 ml BID [facility] Administration Intake and Output 10/16/18 10/17/18 10/17/18 22:59 06:59 14:59 Intake Total 240 Balance 240 Intake: Oral 240 Other: Voiding Method Toilet Toilet # Voids 2 2 10/16/18 11:17 10/16/18 10:40
--- NOTE | 2018-10-17 14:15 | P.DS ---
Providers Date of admission: 10/16/18 12:43 Expected date of discharge: 10/17/18 Attending physician: Ty Garcia MD Consults: 10/16/18 12:43 Consult Physician Urgent Consulting Provider: Jose Jauregui Consult Reason/Comments: cp Do you want consulting provider notified?: Yes Primary care physician: Clara Kang MD Hospital Course: The patient is a 47-year-old female with a PMH of tobacco abuse, hypertension, and hyperlipidemia who presented to the ED for sudden onset of left-sided chest pain. The patient notes that she was in her usual state of health until 1 AM last night when she suddenly woke up with a left-sided burning like chest pain. The pain has started suddenly at 6 AM, and was a 7-8 out of 10, nonradiating, nonpleuritic, and achy in nature. The patient also had associated shortness of breath. In the emergency room, the patient underwent an extensive evaluation, with troponins less than 0.012, EKG revealing normal sinus rhythm at 72 bpm with no acute ischemic changes, d-dimer is within normal limits, and proBNP 29, with chest x-ray unremarkable. The patient was subsequently admitted to the observation unit under the medicine service for evaluation by cardiology. The patient subsequently underwent stress test which failed to reveal any evidence of ischemia. Furthermore, the patient's chest pain resolved and did not recur. The patient was seen and examined at the day of discharge at the bedside. She reported no further chest pain, or shortness of breath. She also denied nausea, vomiting, diaphoresis, fever, or chills. The patient was advised to return to the ED if her symptoms worsened or she develop new symptoms. The patient is presently stable and agreeable for discharge home. Physical Examination General: Non-toxic, in no acute distress, appears stated age, morbidly obese HEENT: NC/AT, anicteric sclerae, moist conjunctiva, no lid-lag, PERRLA Cardiovascular: S1/S2 wnl, no murmurs, rubs, or gallops Lungs: Clear to auscultation, normal respiratory effort, no accessory muscle use Abdominal: Soft, non-tender, non-distended, no guarding, rebound, or rigidity Skin: Warm, dry Extremities: No edema or contractures Psychiatric: Alert and oriented to person, place and time, appropriate affect Neuro: CN II-XII grossly intact, Strength 5/5 in all 4 extremities, Speech intact, Sensation to light touch grossly intact throughout Discharge diagnosis: Atypical chest pain, ACS ruled out; hypertension; hyperlipidemia; tobacco abuse; morbid obesity A total of 35 minutes of time were spent preparing this complex discharge summary. Pertinent Studies: As per [facility] Procedures: As per HPI Patient Condition at Discharge: Good Plan - Discharge Summary Discharge Rx Participant: No New Discharge Prescriptions: Continue buPROPion HCL [buPROPion HCL SR] 150 mg PO DIRECTED Atorvastatin [Lipitor] 10 mg PO DAILY Lisinopril-Hctz 20-25 mg [Zestoretic 20-25] 1 tab PO DAILY Discharge Medication List Atorvastatin [Lipitor] 10 mg PO DAILY 10/16/18 [History] Lisinopril-Hctz 20-25 mg [Zestoretic 20-25] 1 tab PO DAILY 10/16/18 [History] buPROPion HCL [buPROPion HCL SR] 150 mg PO DIRECTED 10/16/18 [History] Follow up Appointment(s)/Referral(s): Clara Kang MD [Primary Care Provider] - 1-2 days Darrell Sam MD [STAFF PHYSICIAN] - 2 Weeks Activity/Diet/Wound Care/Special Instructions: Patient advised that if chest pain recurs or she has new symptoms, to return to the ED Discharge Disposition: HOME SELF-CARE
--- NOTE | 2018-10-17 14:45 | ECHOS ---
STRESS ECHOCARDIOGRAM INDICATIONS: Chest pain. MEDICATIONS: Atorvastatin, lisinopril, Bupropion BASELINE HEART RATE: 83 BASELINE BLOOD PRESSURE: 109/67 MAXIMUM HEART RATE: 153 MAXIMUM BLOOD PRESSURE: 191/97 85% MPHR: 147 100% MPHR: 173 METS: 7.7 MAXIMUM STAGE REACHED: 3 TOTAL EXERCISE TIME: 6:30 CLINICAL INFORMATION: Patient was exercised for a total period of 6 minutes and 30 seconds. A peak heart rate of 153 was achieved. Maximum blood pressure 190/97 mmHg was noted. Resting EKG shows normal sinus rhythm with normal [place] interval and QRS duration and normal ST-T waves. No ST-segment depression suggestive of ischemia is noted. Occasional PVCs were noted. The baseline echocardiographic images reveal normal left ventricular chamber size with normal left ventricular systolic function in the immediate postexercise period. Normal increase in the wall thickness and contractility is noted. FINAL IMPRESSION: 1. This stress echocardiographic study is negative for stress-induced ischemia. 2. EKG portion of the stress test is not suggestive of ischemia. 3. Occasional premature ventricular contractions are noted. 4. Patient's exercise tolerance is average. MMODL / IJN: [id number] /
== END 2018-10-17 14:55 | disposition home or self-care (01) ==
LOC: EC 10:24 → 1SOBS 12:43
PROVIDERS: ADMIT Internal Medicine; ATTEND Internal Medicine
DX: R07.89 Other chest pain (principal); R06.02 Shortness of breath; E66.01 Morbid (severe) obesity due to excess calories; Z68.41 Body mass index [BMI] 40.0-44.9, adult; I10 Essential (primary) hypertension; E78.5 Hyperlipidemia, unspecified; Z79.899 Other long term (current) drug therapy; Z87.891 Personal history of nicotine dependence; Z88.6 Allergy status to analgesic agent; Z88.1 Allergy status to other antibiotic agents; Z88.5 Allergy status to narcotic agent; Z88.8 Allergy status to other drugs, medicaments and biological substances; Z82.49 Family history of ischemic heart disease and other diseases of the circulatory system
CPT/HCPCS: 99285; 36415; 93005; 93351; 85379; 83880; 80061; 80053; 83735; 84484; 85025; 85610; 85730; 71046; G0378 ×2

== ENCOUNTER 2018-10-19 17:37 | Emergency (ER) | payer OTHER ==
[2018-10-19 17:55] VITALS: BP 145/110; TEMP 98
[2018-10-19] MEDS ORDERED: DEXAMETHASONE SOD PHOSPHATE 10 MG/ML 1 ML VIAL IM STA (18:15)
[2018-10-19] MEDS ORDERED: IPRATROPIUM-ALBUTEROL 3 ML NEB INHALATION STA (18:15)
--- NOTE | 2018-10-19 18:24 | ED ---
SOB HPI - General Chief Complaint: Shortness of Breath Stated Complaint: SOB Time Seen by Provider: 10/19/18 17:56 Source: patient, RN notes reviewed, old records reviewed Mode of arrival: ambulatory Limitations: no limitations - History of Present Illness Initial Comments: This is a 47-year-old female the ER for evaluation of shortness of breath. Rae ent has persistent shortness of breath severe although states that she has no chest pain. Patient was recently admitted for chest pain at no cause found. Patient did have stress test. Patient briefly quit smoking is now currently on Wellbutrin instructed taken medication symptoms began shortly after taking the medication today. No fevers cough or congestion otherwise. MD Complaint: shortness of breath, cough, anxiety -: minutes(s) Severity: mild Severity scale (1-10): 3 Consistency: now resolved Improves With: nothing Worsens With: nothing Known History Of: COPD Associated Symptoms: denies other symptoms - Related Data Home Medications Medication Instructions Recorded Confirmed Atorvastatin [Lipitor] 10 mg PO DAILY 10/16/18 10/19/18 Lisinopril-Hctz 20-25 mg 1 tab PO DAILY 10/16/18 10/19/18 [Zestoretic 20-25] buPROPion HCL [buPROPion HCL SR] 150 mg PO BID 10/16/18 10/19/18 Allergies Allergy/AdvReac Type Severity Reaction Status Date / Time amoxicillin trihydrate Allergy Anaphylaxis Verified 10/19/18 18:10 [From Augmentin] codeine Allergy Unknown Verified 10/19/18 18:10 Childhood ibuprofen [From Motrin] Allergy Anaphylaxis Verified 10/19/18 18:10 potassium clavulanate Allergy Anaphylaxis Verified 10/19/18 18:10 [From Augmentin] Review of Systems ROS Statement: Those systems with pertinent positive or pertinent negative responses have been documented in the HPI. ROS Other: All systems not noted in ROS Statement are negative. Past Medical History Past Medical History: Hyperlipidemia, Hypertension Additional Past Medical History / Comment(s): UTI years ago. History of Any Multi-Drug Resistant Organisms: None Reported Past Surgical History: Section, Uterine Ablation Additional Past Surgical History / Comment(s): e-sure ablation Past Anesthesia/Blood Transfusion Reactions: No Reported Reaction Past Psychological History: No Psychological Hx Reported Smoking Status: Former smoker Past Alcohol Use History: None Reported Past Drug Use History: None Reported - Past Family History Mother Family Medical History: Coronary Artery Disease (CAD), Myocardial Infarction ([place]) Additional Family Medical History / Comment(s): Mother had a [place] at the age of 56yrs and has a cardiac stent. Father Family Medical History: No Reported History Additional Family Medical History / Comment(s): Father is healthy. General Exam Limitations: no limitations General appearance: alert, in no apparent distress, anxious Head exam: Present: atraumatic, normocephalic, normal inspection Eye exam: Present: normal appearance, PERRL, EOMI. Absent: scleral icterus, conjunctival injection, periorbital swelling ENT exam: Present: normal exam, mucous membranes moist Neck exam: Present: normal inspection. Absent: tenderness, meningismus, lymphadenopathy Respiratory exam: Present: normal lung sounds bilaterally. Absent: respiratory distress, wheezes, rales, rhonchi, stridor Cardiovascular Exam: Present: regular rate, normal rhythm, normal heart sounds. Absent: systolic murmur, diastolic murmur, rubs, gallop, clicks GI/Abdominal exam: Present: soft, normal bowel sounds. Absent: distended, tenderness, guarding, rebound, rigid Extremities exam: Present: normal inspection, full ROM, normal capillary refill. Absent: tenderness, pedal edema, joint swelling, calf tenderness Back exam: Present: normal inspection Neurological exam: Present: alert, oriented X3, CN II-XII intact Psychiatric exam: Present: normal affect, normal mood Skin exam: Present: warm, dry, intact, normal color. Absent: rash Course Vital Signs 10/19/18 10/19/18 10/19/18 17:53 18:03 18:41 Temperature 98.0 F Pulse Rate 74 83 Respiratory 18 22 16 Rate Blood Pressure 145/110 O2 Sat by Pulse 98 Oximetry 10/19/18 18:48 Temperature Pulse Rate 90 Respiratory 16 Rate Blood Pressure O2 Sat by Pulse Oximetry - Reevaluation(s) Reevaluation #1: Medical records reviewed Patient is without significant complaint of shortness of breath currently Does improve with breathing treatment, patient has x-ray history of smoking no formal diagnosis of COPD Medical Decision Making - Medical Decision Making 47 female the ER for evaluation shortness of breath more anxiety reaction likely due to medication. X-rays normal patient does feel improved currently. Patient can be discharged home - Radiology Data Radiology results: report reviewed (Chest x-rays negative for acute disease), image reviewed Disposition Clinical Impression: Medication reaction Disposition: HOME SELF-CARE Condition: Good Instructions (If sedation given, give patient instructions): Bupropion (By mouth) Is patient prescribed a controlled substance at d/c from ED?: No Referrals: Clara Kang MD [Primary Care Provider] - 1-2 days
--- NOTE | 2018-10-19 18:31 | XR ---
EXAMINATION TYPE: XR chest 2V DATE OF EXAM: 10/19/2018 COMPARISON: 10/16/2018 HISTORY: Short of breath TECHNIQUE: Frontal and lateral views of the chest are obtained. FINDINGS: Heart and mediastinum are normal. Lungs are clear. Diaphragm is normal. Bony thorax appear s normal. IMPRESSION: Normal chest. No change.
[2018-10-19 18:43] VITALS: RESP 16
[2018-10-19 18:48] VITALS: PULSE 90
== END 2018-10-19 19:15 | disposition home or self-care (01) ==
LOC: EC 17:37
DX: R06.02 Shortness of breath (principal); T43.295A Adverse effect of other antidepressants, initial encounter; F41.9 Anxiety disorder, unspecified; R05 Cough; E78.5 Hyperlipidemia, unspecified; I10 Essential (primary) hypertension; Z87.891 Personal history of nicotine dependence; Z79.899 Other long term (current) drug therapy; Z88.0 Allergy status to penicillin; Z88.5 Allergy status to narcotic agent; Z88.6 Allergy status to analgesic agent
CPT/HCPCS: 94640; 71046; 99285; 96372; J1100

== ENCOUNTER 2020-03-24 17:39 | Emergency (ER) | payer BC, OTHER ==
--- NOTE | 2020-03-24 17:47 | ED ---
Allergic Reaction HPI - General Chief complaint: Allergic Reaction Stated complaint: Reaction Time Seen by Provider: 03/24/20 17:47 Source: patient Mode of arrival: ambulatory Limitations: no limitations - History of Present Illness Initial Comments: Patient is a 49-year-old female presenting to emergency Department with a chief complaint of facial swelling. Patient states about 2 days ago she developed swelling mostly on the left side of her face and under her chin. Patient states she is not diabetic. No recent dental infections or dental work performed. Patient states she went to her primary care physician who started her on prednisone. States she only took 10 mg of prednisone and has not developed increased swelling as well as pain on the left side of the submandibular region. States she also has a tender region on the left side of the floor of the tongue. Denies any night sweats fevers or chills. Denies dysphagia, odontophagia. States she also has itching on the face and lips which started today. - Related Data Home Medications Medication Instructions Recorded Confirmed Atorvastatin [Lipitor] 10 mg PO DAILY 10/16/18 10/19/18 Lisinopril-Hctz 20-25 mg 1 tab PO DAILY 10/16/18 10/19/18 [Zestoretic 20-25] buPROPion HCL [buPROPion HCL SR] 150 mg PO BID 10/16/18 10/19/18 Allergies Allergy/AdvReac Type Severity Reaction Status Date / Time amoxicillin trihydrate Allergy Anaphylaxis Verified 03/24/20 17:45 [From Augmentin] codeine Allergy Unknown Verified 03/24/20 17:45 Childhood ibuprofen [From Motrin] Allergy Anaphylaxis Verified 03/24/20 17:45 potassium clavulanate Allergy Anaphylaxis Verified 03/24/20 17:45 [From Augmentin] Review of Systems ROS Statement: Those systems with pertinent positive or pertinent negative responses have been documented in the HPI. ROS Other: All systems not noted in ROS Statement are negative. Past Medical History Past Medical History: Hyperlipidemia, Hypertension Additional Past Medical History / Comment(s): UTI years ago. History of Any Multi-Drug Resistant Organisms: None Reported Past Surgical History: Section, Uterine Ablation Additional Past Surgical History / Comment(s): e-sure ablation Past Anesthesia/Blood Transfusion Reactions: No Reported Reaction Past Psychological History: No Psychological Hx Reported Smoking Status: Former smoker Past Alcohol Use History: None Reported Past Drug Use History: None Reported - Past Family History Mother Family Medical History: Coronary Artery Disease (CAD), Myocardial Infarction ([place]) Additional Family Medical History / Comment(s): Mother had a [place] at the age of 56yrs and has a cardiac stent. Father Family Medical History: No Reported History Additional Family Medical History / Comment(s): Father is healthy. General Exam Limitations: no limitations General appearance: alert, in no apparent distress, obese Head exam: Present: atraumatic, normocephalic, normal inspection Eye exam: Present: normal appearance, PERRL, EOMI Pupils: Present: normal accommodation ENT exam: Present: mucous membranes moist, TM's normal bilaterally, normal external ear exam. Absent: normal exam (Mild left-sided facial swelling as well as swelling in the left submandibular region near the same in the Glez lymph nodes.), normal oropharynx (Small localized infection noted on the floor of the oral cavity. Could resemble an obstructed salivary stone.) Neck exam: Present: normal inspection, full ROM, lymphadenopathy (Left 7 and regular). Absent: tenderness Respiratory exam: Present: normal lung sounds bilaterally. Absent: respiratory distress, wheezes Cardiovascular Exam: Present: regular rate, normal rhythm, normal heart sounds Extremities exam: Present: normal inspection, full ROM. Absent: tenderness Back exam: Present: normal inspection, full ROM. Absent: tenderness Neurological exam: Present: alert, oriented X3 Psychiatric exam: Present: normal affect, normal mood Skin exam: Present: warm, dry, intact, normal color Course Vital Signs 03/24/20 17:40 Temperature 98.9 F Pulse Rate 94 Respiratory 16 Rate Blood Pressure 140/83 O2 Sat by Pulse 97 Oximetry Medical Decision Making - Medical Decision Making Patient is a 49-year-old female presenting to the emergency department with a chief complaint of facial swelling. On exam patient has swelling on the floor of the oral cavity particularly on the left side. The vision appears to be tender to palpation. She also has left-sided submandibular swelling. CT of soft tissue neck reveals a bilateral anterior cervical lymph nodes. No evidence of salivary gland mass. Left-sided anterior Simmon nebular calcified mass could be a calcified lymph node. Patient was given Benadryl. Reevaluation patient reports improvement in symptoms. Advised the patient to follow with a primary care physician and ENT. Strict return parameters were thoroughly discussed patient was understanding and agreeable. Case discussed with physician. Disposition Clinical Impression: Calcified lymph nodes, Lymphadenopathy Disposition: HOME SELF-CARE Condition: Stable Instructions (If sedation given, give patient instructions): Lymphadenopathy (ED) Additional Instructions: Follow-up with the primary care physician and ENT. Continue taking the prednisone and take Benadryl if she develops itching. Return to emergency department if symptoms worsen. Is patient prescribed a controlled substance at d/c from ED?: No Referrals: Edy Flanagan [Primary Care Provider] - 1-2 days Paul Guillen MD [STAFF PHYSICIAN] - 1-2 days Time of Disposition: 19:19
[2020-03-24] MEDS ORDERED: diphenhydrAMINE 50 MG CAP PO STA (17:57)
--- NOTE | 2020-03-24 19:02 | CT ---
EXAMINATION TYPE: CT soft tissue neck wo con DATE OF EXAM: 03/24/2020 COMPARISON: None HISTORY: Left submandibular swelling starting yesterday. CT DLP: 443.3 mGycm Automated exposure control for dose reduction was used. Images were obtained from the level of the aortic arch to the mid maxilla without contrast. There is 2 cm mucous retention cyst in the right maxillary sinus. Maxilla is intact. Mandibular ring is intact. There is 9 mm ossified mass on the posterior aspect of the anterior left hemimandible. Thi s could be a calcified lymph node. The parotid glands are symmetric. The submandibular salivary gland s are symmetric. There are multiple enlarged anterior triangle cervical lymph nodes bilaterally. Larg est on the right side measures 2 cm. Largest lymph node on the left side measures 1.7 cm. There is no evidence of pharyngeal mass. There is some hypertrophy of the tonsils. The tonsils measur e 3.1 x 1.7 cm. There is mild hypertrophy of the adenoids. Adenoids measure up to 11 mm in thickness. Subglottic trachea is normal. There is no evidence of tracheal mass. The trachea appears intact. The re is 1.5 cm hypodensity in the right thyroid lobe that is probably a cyst.. The epiglottis is normal . The tongue appears intact. Cervical spine is intact. IMPRESSION: There is bilateral anterior cervical lymphadenopathy. No evidence of salivary gland mass. Left side a nterior submandibular calcified mass could be calcified lymph node. Mild hypertrophy of the tonsils and adenoids.
[2020-03-24 19:42] VITALS: BP 138/77; PULSE 72; RESP 18; TEMP 98.2
== END 2020-03-24 19:41 | disposition home or self-care (01) ==
LOC: EC 17:39
DX: I89.8 Other specified noninfective disorders of lymphatic vessels and lymph nodes (principal); I10 Essential (primary) hypertension; E78.5 Hyperlipidemia, unspecified; Z87.891 Personal history of nicotine dependence; Z79.899 Other long term (current) drug therapy; Z88.0 Allergy status to penicillin; Z88.1 Allergy status to other antibiotic agents; Z88.5 Allergy status to narcotic agent; Z88.6 Allergy status to analgesic agent
CPT/HCPCS: 70490; 99283

== ENCOUNTER 2020-03-28 17:03 | Emergency (ER) | payer BC ==
[2020-03-28 17:10] VITALS: RESP 18
--- NOTE | 2020-03-28 17:52 | XR ---
EXAMINATION TYPE: XR soft tissue neck DATE OF EXAM: 03/28/2020 COMPARISON: NONE HISTORY: Neck swelling TECHNIQUE: 2 views FINDINGS: Epiglottis is normal. There is some enlargement of the tonsils that measure 4 x 2 cm. Preve rtebral soft tissues appear normal. Adenoids appear normal. Subglottic trachea is intact. There is de generative disc narrowing and spur formation at C5-6. IMPRESSION: Mild enlargement of the tonsils. Normal epiglottis.
[2020-03-28] MEDS ORDERED: CLINDAMYCIN 150 MG CAP PO STA (18:55)
--- NOTE | 2020-03-28 18:55 | ED ---
General Adult HPI - General Source: patient, RN notes reviewed, old records reviewed Mode of arrival: ambulatory Limitations: no limitations <Surjit Jose - Last Filed: 03/29/20 10:25> <Lorraine Walker - Last Filed: 03/29/20 13:11> - General Chief complaint: ENT Stated complaint: swollen glands-revisit Time Seen by Provider: 03/28/20 17:19 - History of Present Illness Initial comments: 49-year-old female patient presents to ED for evaluation of some submandibular gland swelling. Patient was has been ongoing for about a week. Patient reports that she was taking azithromycin has 2 days left reports that she received steroids which did decrease the swelling. Patient has been seen in this department where she had a CAT scan about 5 days ago and also to urgent care 2 days later. Patient does have an appointment with ENT on Monday. Patient is able to swallow without difficulty and denies any shortness of breath. Systemic: Pt denies fatigue, fever/chills, rash. Pt denies weakness, night sweats, weight loss. Neuro: Pt denies headache, visual disturbances, syncope or pre-syncope. HEENT: Pt denies ocular discharge or irritation, otalgia, rhinorrhea, pharyngitis. Cardiopulmonary: Pt denies chest pain, SOB, heart palpitations, dyspnea on exertion. Abdominal/GI: Pt denies abdominal pain, n/v/d. : Pt denies dysuria, burning w/ urination, frequency/urgency. Denies new onset urinary or bowel incontinence. MSK: Pt denies myalgia, loss of strength or function in extremities. Neuro: Pt denies new onset weakness, paresthesias. (Surjit Jose) - Related Data Home Medications Medication Instructions Recorded Confirmed Atorvastatin [Lipitor] 10 mg PO DAILY 10/16/18 10/19/18 Lisinopril-Hctz 20-25 mg 1 tab PO DAILY 10/16/18 10/19/18 [Zestoretic 20-25] buPROPion HCL [buPROPion HCL SR] 150 mg PO BID 10/16/18 10/19/18 Previous Rx's Medication Instructions Recorded Clindamycin [Cleocin] 450 mg PO Q8HR 7 Days #63 cap 03/28/20 Allergies Allergy/AdvReac Type Severity Reaction Status Date / Time amoxicillin trihydrate Allergy Anaphylaxis Verified 03/28/20 17:07 [From Augmentin] codeine Allergy Unknown Verified 03/28/20 17:07 Childhood ibuprofen [From Motrin] Allergy Anaphylaxis Verified 03/28/20 17:07 potassium clavulanate Allergy Anaphylaxis Verified 03/28/20 17:07 [From Augmentin] Review of Systems ROS Other: All systems not noted in ROS Statement are negative. <Surjit Jose - Last Filed: 03/29/20 10:25> ROS Other: All systems not noted in ROS Statement are negative. <TravarelyLorraine George - Last Filed: 03/29/20 13:11> ROS Statement: Those systems with pertinent positive or pertinent negative responses have been documented in the HPI. Past Medical History Past Medical History: Hyperlipidemia, Hypertension Additional Past Medical History / Comment(s): UTI years ago. History of Any Multi-Drug Resistant Organisms: None Reported Past Surgical History: Section, Uterine Ablation Additional Past Surgical History / Comment(s): e-sure ablation Past Anesthesia/Blood Transfusion Reactions: No Reported Reaction Past Psychological History: No Psychological Hx Reported Smoking Status: Former smoker Past Alcohol Use History: None Reported Past Drug Use History: None Reported - Past Family History Mother Family Medical History: Coronary Artery Disease (CAD), Myocardial Infarction ([place]) Additional Family Medical History / Comment(s): Mother had a [place] at the age of 56yrs and has a cardiac stent. Father Family Medical History: No Reported History Additional Family Medical History / Comment(s): Father is healthy. <Surjit Jose - Last Filed: 03/29/20 10:25> General Exam Limitations: no limitations <Surjit Jose - Last Filed: 03/29/20 10:25> - General Exam Comments Initial Comments: Constitutional: NAD, AOX3, Pt has pleasant affect. HEENT: NC/AT, trachea midline, neck supple, mild submandibular gland swelling noted. No external skin changes.. Posterior pharynx non erythematous, without exudates. +2 tonsils. External ears appear normal, without discharge. Mucous membranes moist. Eyes PERRLA, EOM intact. There is no scleral icterus. No pallor noted. Cardiopulmonary: RRR, no murmurs, rubs or gallops, no JVD noted. Lungs CTAB in anterior and posterior ramos. No peripheral edema. Abdominal exam: Abdomen soft and non-distended. Abdomen non-tender to palpation in all 4 quadrants. Bowel sounds active in LLQ. No hepatosplenomegaly. No ecchymosis Neuro: CN II-XII intact. No nuchal rigidity. MSK:Full active ROM in upper and lower extremities, 5/5 stregnth. (Surjit Jose) Course Vital Signs 03/28/20 03/28/20 17:08 19:19 Temperature 98.3 F 98.2 F Pulse Rate 91 90 Respiratory 18 18 Rate Blood Pressure 136/69 116/83 O2 Sat by Pulse 95 98 Oximetry Medical Decision Making <Surjit Jose - Last Filed: 03/29/20 10:25> <Lorraine Walker - Last Filed: 03/29/20 13:11> - Medical Decision Making 49-year-old female patient presents seizure evaluation 70 mg swelling. Patient vital signs are stable, afebrile. Physical exam displayed some submandibular gland swelling noted. There is no trismus or sensory stridor. Plain film soft tissue mild swelling of the tonsils. I reviewed previous CAT scan from 03/24 which displayed left-sided anterior 70 were calcified mass could be calcified lymph node. Bilateral anterior cervical lymphadenopathy. Strep is negative. Patient will be switched to clindamycin discontinue the azithromycin and will follow up with her primary care provider as well as the ENT which was previously scheduled. Return to ER if any worsening symptoms. Case discussed with Dr. Walker. (Surjit Jose) I was available for consultation in the emergency department. The history and physical exam were done by the midlevel provider. I was consulted for this patients care. I reviewed the case with the midlevel provider and based on their presentation of the patient, I agree with the assessment, medical decision making and plan of care as documented. Previous CT reviewed. No drooling, trismus, hoarseness or stridor. No signs of airway compromise. No signs of ludwigs angina. Chart was dictated using [employer] dictation software. Attempts were made to correct any dictation errors however some typographical errors may persist. Patient was seen during a national state of emergency due to the Covid-19 pandemic. (Lorraine Walker) - Lab Data Lab Results 03/28/20 Range/Units 17:39 Group A Strep Rapid Negative (Negative) Disposition Is patient prescribed a controlled substance at d/c from ED?: No <Surjit Jose - Last Filed: 03/29/20 10:25> <Lorraine Walker - Last Filed: 03/29/20 13:11> Clinical Impression: Lymphadenopathy Disposition: HOME SELF-CARE Condition: Stable Additional Instructions: Taken antibiotics as instructed. Follow up with primary care provider tomorrow. Return to ER if any worsening symptoms. Follow up with ENT as scheduled on Monday. Prescriptions: Clindamycin [Cleocin] 450 mg PO Q8HR 7 Days #63 cap Referrals: Edy Flanagan [Primary Care Provider] - 1-2 days
[2020-03-28 19:20] VITALS: BP 116/83; PULSE 90; TEMP 98.2
== END 2020-03-28 19:19 | disposition home or self-care (01) ==
LOC: EC 17:03
DX: R59.0 Localized enlarged lymph nodes (principal); R56.9 Unspecified convulsions; J35.1 Hypertrophy of tonsils; I10 Essential (primary) hypertension; E78.5 Hyperlipidemia, unspecified; Z79.899 Other long term (current) drug therapy; Z88.1 Allergy status to other antibiotic agents; Z88.5 Allergy status to narcotic agent; Z88.6 Allergy status to analgesic agent; Z88.0 Allergy status to penicillin; Z87.891 Personal history of nicotine dependence
CPT/HCPCS: 70360; 87081; 87430; 99284

== ENCOUNTER → 2020-04-10 | Outpatient (CLI) | payer BC ==
--- NOTE | 2020-04-10 15:12 | US ---
EXAMINATION TYPE: US thyroid st tissue head/neck DATE OF EXAM: 04/10/2020 COMPARISON: NONE CLINICAL HISTORY: E04.1 thyroid nodule, R22.1 left neck mass. f/u to ct scan. GLAND SIZE: Right Lobe: 4.2 x 2.0 x 1.9 cm Overall Parenchyma: homogenous Left Lobe: 4.9 x 1.5 x 1.9 cm Overall Parenchyma: homogeneous Isthmus Thickness: .3 cm NODULES RIGHT: # of nodules measured on right: 1 1. 1.4 X .9 x 1.3 cm mixed nodule at the mid pole with well-defined margins. This nodule is wider t sandoval tall and shows no intranodular vascularity. Prior size: No previous. LEFT: # of nodules measured on left: 0 ISTHMUS: # of nodules measured in the isthmus: 0 Bilateral neck scanned, no evidence of lymphadenopathy. IMPRESSION: 1. Right lobe thyroid nodule
[2020-04-10 16:03] LABS: T4, Free (Free Thyroxine) 1.08 ng/dL (0.78-2.19)
== END | disposition home or self-care (01) ==
LOC: RADUSWWP 14:15
PROVIDERS: ATTEND Otolaryngology
DX: E04.1 Nontoxic single thyroid nodule (principal); E03.9 Hypothyroidism, unspecified; E07.89 Other specified disorders of thyroid; Z88.0 Allergy status to penicillin; Z88.5 Allergy status to narcotic agent; Z91.040 Latex allergy status; Z88.6 Allergy status to analgesic agent
CPT/HCPCS: 76536; 84439; 84443; 86376

== ENCOUNTER 2020-04-22 13:06 | Day surgery (SDC) | payer BC ==
[2020-04-22 13:27] VITALS: RESP 16; TEMP 98
[2020-04-22] MEDS ORDERED: ALPRAZolam 0.5 MG TAB PO STA (13:28)
--- NOTE | 2020-04-22 14:50 | US ---
EXAMINATION TYPE: US FNA thyroid first lesion DATE OF EXAM: 04/22/2020 COMPARISON: Ultrasound 04/10/2020 HISTORY: Right thyroid nodule Maximal barrier technique was utilized. After informed consent, skin overlying the right lobe thyroi d nodule was localized with ultrasound and the overlying skin prepped and draped. Ultrasound was util ized using sterile technique. Lidocaine was used for local anesthesia. Five passes with a 25-gauge n eedle were made into the nodule and aspirated specimen was submitted to cytology. Following the proc edure hemostasis achieved. No immediate complication. The patient discharged in stable condition. IMPRESSION: STATUS POST ULTRASOUND GUIDED FINE NEEDLE ASPIRATION OF RIGHT THYROID NODULE, PATHOLOGY I S PENDING. THIS PROCEDURE WAS PERFORMED BY THE UNDERSIGNED.
[2020-04-22 14:51] VITALS: BP 117/75; PULSE 86
== END 2020-04-22 14:50 | disposition home or self-care (01) ==
LOC: RADPROMAIN 13:06
PROVIDERS: ATTEND Otolaryngology
DX: E04.1 Nontoxic single thyroid nodule (principal)
CPT/HCPCS: 10005; 88173; 88305

== ENCOUNTER 2021-03-28 09:47 | Emergency (ER) | payer SELFPAY ==
[2021-03-28 09:50] VITALS: PULSE 94; TEMP 97.8
[2021-03-28] MEDS ORDERED: LORazepam 2 MG/ML INJ IV STA (09:58)
--- NOTE | 2021-03-28 10:05 | ED ---
General Adult HPI - General Chief complaint: Anxiety Stated complaint: SOB Time Seen by Provider: 03/28/21 09:50 Source: patient, RN notes reviewed, old records reviewed Mode of arrival: wheelchair Limitations: no limitations - History of Present Illness Initial comments: This is a 50-year-old female presents emergency complaining that short of breath per patient states his been intermittently occurring over the last 3 days. Patient states she was 30 seen in urgent care and they told her it was anxiety. Patient states she's been taking Vistaril because that is what they prescribed and she states helps but only helps temporarily. Patient denies any fever chills or cough per patient denies chest pain palpitations. Patient denies any abdominal pain patient still is vomiting diarrhea. Patient denies any swelling to the legs or calf tenderness. Patient states she thinks she's much more anxious because she quit smoking 30 days ago - Related Data Home Medications Medication Instructions Recorded Confirmed Atorvastatin [Lipitor] 10 mg PO HS 10/16/18 03/28/21 Lisinopril-Hctz 20-25 mg 1 tab PO DAILY 03/28/21 03/28/21 [Zestoretic 20-25] buPROPion SR [Wellbutrin SR] 150 mg PO BID 03/28/21 03/28/21 hydrOXYzine HCL 25 mg PO Q6H PRN 03/28/21 03/28/21 Allergies Allergy/AdvReac Type Severity Reaction Status Date / Time amoxicillin trihydrate Allergy Anaphylaxis Verified 03/28/21 10:37 [From Augmentin] codeine Allergy Unknown Verified 03/28/21 10:37 Childhood ibuprofen [From Motrin] Allergy Anaphylaxis Verified 03/28/21 10:37 latex Allergy Rash/Hives Verified 03/28/21 10:37 potassium clavulanate Allergy Anaphylaxis Verified 03/28/21 10:37 [From Augmentin] Review of Systems ROS Statement: Those systems with pertinent positive or pertinent negative responses have been documented in the HPI. ROS Other: All systems not noted in ROS Statement are negative. Past Medical History Past Medical History: Hyperlipidemia, Hypertension Additional Past Medical History / Comment(s): UTI years ago, thyroid nodule, tonsillitis History of Any Multi-Drug Resistant Organisms: None Reported Past Surgical History: Section, Uterine Ablation Additional Past Surgical History / Comment(s): e-sure coils in tubes instead of cutting/tubal ligation and uterine ablation 2010 Past Anesthesia/Blood Transfusion Reactions: No Reported Reaction Past Psychological History: No Psychological Hx Reported Smoking Status: Former smoker Past Alcohol Use History: None Reported Past Drug Use History: None Reported - Past Family History Mother Family Medical History: Coronary Artery Disease (CAD), Myocardial Infarction ([place]) Additional Family Medical History / Comment(s): Mother had a [place] at the age of 56yrs and has a cardiac stent. Father Family Medical History: No Reported History Additional Family Medical History / Comment(s): Father is healthy. General Exam - General Exam Comments Initial Comments: GENERAL: Patient is well-developed and well-nourished. Patient is nontoxic and well- hydrated and is in mild distress. ENT: Neck is soft and supple. No significant lymphadenopathy is noted. Oropharynx is clear. Moist mucous membranes. Neck has full range of motion without eliciting any pain. EYES: The sclera were anicteric and conjunctiva were pink and moist. Extraocular movements were intact and pupils were equal round and reactive to light. Eyelids were unremarkable. PULMONARY: Unlabored respirations. Good breath sounds bilaterally. No audible rales rhonchi or wheezing was noted. CARDIOVASCULAR: There is a regular rate and rhythm without any murmurs gallops or rubs. ABDOMEN: Soft and nontender with normal bowel sounds. SKIN: Skin is clear with no lesions or rashes and otherwise unremarkable. NEUROLOGIC: Patient is alert and oriented x3. Cranial nerves II through XII are grossly intact. Motor and sensory are also intact. Normal speech, volume and content. Symmetrical smile. MUSCULOSKELETAL: Normal extremities with adequate strength and full range of motion. No lower extremity swelling or edema. No calf tenderness. LYMPHATICS: No significant lymphadenopathy is noted PSYCHIATRIC: Patient is tearful and appears to be very anxious Limitations: no limitations Course Vital Signs 03/28/21 03/28/21 09:48 11:03 Temperature 97.8 F Pulse Rate 94 94 Respiratory 24 18 Rate Blood Pressure 156/86 118/85 O2 Sat by Pulse 94 L 94 L Oximetry Medical Decision Making - Medical Decision Making EKG shows a sinus rhythm at a rate of 93 bpm TX interval is 140 QRS is 94 QT interval 374 QTC is 465. Patient's EKG shows no ST segment elevation or depression. - Lab Data Result diagrams: 03/28/21 10:03 03/28/21 10:03 Lab Results 03/28/21 03/28/21 03/28/21 Range/Units 10:03 10:03 10:03 WBC 7.9 (3.8-10.6) k/uL RBC 4.65 (3.80-5.40) m/uL Hgb 14.9 (11.4-16.0) gm/dL Hct 42.7 (34.0-46.0) % MCV 91.7 (80.0-100.0) fL MCH 32.0 (25.0-35.0) pg MCHC 34.9 (31.0-37.0) g/dL RDW 13.7 (11.5-15.5) % Plt Count 223 (150-450) k/uL MPV 7.7 Neutrophils % (Manual) 62 % Lymphocytes % (Manual) 24 % Monocytes % (Manual) 9 % Eosinophils % (Manual) 3 % Basophils % (Manual) 2 % Neutrophils # (Manual) 4.90 (1.3-7.7) k/uL Lymphocytes # (Manual) 1.90 (1.0-4.8) k/uL Monocytes # (Manual) 0.71 (0-1.0) k/uL Eosinophils # (Manual) 0.24 (0-0.7) k/uL Basophils # (Manual) 0.16 (0-0.2) k/uL Nucleated RBCs 0 (0-0) /100 WBC Manual Slide Review Performed RBC Morphology Normal PT 9.4 (9.0-12.0) sec INR 0.9 (<1.2) APTT 21.5 L (22.0-30.0) sec D-Dimer 0.47 (<0.60) mg/L FEU Sodium 134 L (137-145) mmol/L Potassium 3.8 (3.5-5.1) mmol/L Chloride 103 (98-107) mmol/L Carbon Dioxide 21 L (22-30) mmol/L Anion Gap 10 mmol/L BUN 10 (7-17) mg/dL Creatinine 0.35 L (0.52-1.04) mg/dL Est GFR (CKD-EPI)AfAm >90 (>60 ml/min/1.73 sqM) Est GFR (CKD-EPI)NonAf >90 (>60 ml/min/1.73 sqM) Glucose 191 H (74-99) mg/dL Calcium 9.7 (8.4-10.2) mg/dL Magnesium 1.6 (1.6-2.3) mg/dL Total Bilirubin 0.3 (0.2-1.3) mg/dL AST 30 (14-36) U/L ALT 23 (4-34) U/L Alkaline Phosphatase 84 (38-126) U/L Troponin I (0.000-0.034) ng/mL Total Protein 6.8 (6.3-8.2) g/dL Albumin 3.8 (3.5-5.0) g/dL 03/28/21 Range/Units 10:03 WBC (3.8-10.6) k/uL RBC (3.80-5.40) m/uL Hgb (11.4-16.0) gm/dL Hct (34.0-46.0) % MCV (80.0-100.0) fL MCH (25.0-35.0) pg MCHC (31.0-37.0) g/dL RDW (11.5-15.5) % Plt Count (150-450) k/uL MPV Neutrophils % (Manual) % Lymphocytes % (Manual) % Monocytes % (Manual) % Eosinophils % (Manual) % Basophils % (Manual) % Neutrophils # (Manual) (1.3-7.7) k/uL Lymphocytes # (Manual) (1.0-4.8) k/uL Monocytes # (Manual) (0-1.0) k/uL Eosinophils # (Manual) (0-0.7) k/uL Basophils # (Manual) (0-0.2) k/uL Nucleated RBCs (0-0) /100 WBC Manual Slide Review RBC Morphology PT (9.0-12.0) sec INR (<1.2) APTT (22.0-30.0) sec D-Dimer (<0.60) mg/L FEU Sodium (137-145) mmol/L Potassium (3.5-5.1) mmol/L Chloride (98-107) mmol/L Carbon Dioxide (22-30) mmol/L Anion Gap mmol/L BUN (7-17) mg/dL Creatinine (0.52-1.04) mg/dL Est GFR (CKD-EPI)AfAm (>60 ml/min/1.73 sqM) Est GFR (CKD-EPI)NonAf (>60 ml/min/1.73 sqM) Glucose (74-99) mg/dL Calcium (8.4-10.2) mg/dL Magnesium (1.6-2.3) mg/dL Total Bilirubin (0.2-1.3) mg/dL AST (14-36) U/L ALT (4-34) U/L Alkaline Phosphatase (38-126) U/L Troponin I <0.012 (0.000-0.034) ng/mL Total Protein (6.3-8.2) g/dL Albumin (3.5-5.0) g/dL Disposition Clinical Impression: Acute anxiety Disposition: HOME SELF-CARE Instructions (If sedation given, give patient instructions): Generalized Anxiety Disorder (ED) Is patient prescribed a controlled substance at d/c from ED?: No Referrals: None,Stated [REFERRING] - 1-2 days Time of Disposition: 11:24
[2021-03-28 10:28] LABS: HCT 42.7 % (34.0-46.0); HGB 14.9 gm/dL (11.4-16.0); MCHC 34.9 g/dL (31.0-37.0); MCV 91.7 fL (80.0-100.0); Mean Platelet Volume 7.7; Platelet Count 223 k/uL (150-450); RBC 4.65 m/uL (3.80-5.40); RDW 13.7 % (11.5-15.5); WBC 7.9 k/uL (3.8-10.6)
[2021-03-28 10:29] LABS: ALT 23 U/L (4-34); AST 30 U/L (14-36); African American GFR (CKD) >90 (>60 ml/min/1.73 sqM); Albumin 3.8 g/dL (3.5-5.0); Alkaline Phosphatase 84 U/L (38-126); Anion Gap 10 mmol/L; Blood Urea Nitrogen 10 mg/dL (7-17); Calcium 9.7 mg/dL (8.4-10.2); Carbon Dioxide 21 mmol/L (22-30); Chloride 103 mmol/L (98-107); Glucose 191 mg/dL (74-99); Magnesium 1.6 mg/dL (1.6-2.3); Non-African American GFR(CKD) >90 (>60 ml/min/1.73 sqM); Potassium 3.8 mmol/L (3.5-5.1); Sodium 134 mmol/L (137-145); Total Bilirubin 0.3 mg/dL (0.2-1.3); Total Protein 6.8 g/dL (6.3-8.2)
--- NOTE | 2021-03-28 10:30 | XR ---
EXAMINATION TYPE: XR chest 2V DATE OF EXAM: 03/28/2021 COMPARISON: Chest radiograph October 19, 2018 HISTORY: Difficulty breathing TECHNIQUE: Frontal and lateral views of the chest are obtained. FINDINGS: There is no focal air space opacity, pleural effusion, or pneumothorax seen. The cardiac silhouette size is within normal limits. The osseous structures are intact. IMPRESSION: No acute cardiopulmonary process.
[2021-03-28 10:42] LABS: Basophils # (M) 0.16 k/uL (0-0.2); Eosinophils # (M) 0.24 k/uL (0-0.7); Monocytes # (M) 0.71 k/uL (0-1.0); Neutrophils % (M) 62 %; Nucleated Red Blood Cells 0 /100 WBC (0-0); Total Cells Counted 100
[2021-03-28 10:47] LABS: INR 0.9 (<1.2); Prothrombin Time 9.4 sec (9.0-12.0)
[2021-03-28 11:00] LABS: Partial Thromboplastin Time 21.5 sec (22.0-30.0)
[2021-03-28 11:04] VITALS: BP 118/85; RESP 18
== END 2021-03-28 11:33 | disposition home or self-care (01) ==
LOC: EC 09:47
DX: F41.9 Anxiety disorder, unspecified (principal); R06.02 Shortness of breath; I10 Essential (primary) hypertension; E78.5 Hyperlipidemia, unspecified; Z87.891 Personal history of nicotine dependence; Z79.899 Other long term (current) drug therapy; Z88.0 Allergy status to penicillin; Z88.1 Allergy status to other antibiotic agents; Z88.6 Allergy status to analgesic agent; Z91.040 Latex allergy status
CPT/HCPCS: 36415; 93005; 85379; 80053; 83735; 84484; 85025; 85610; 85730; 71046; 99285; 96374; J2060

== ENCOUNTER 2022-07-03 16:53 | Emergency (ER) | payer BC, OTHER ==
--- NOTE | 2022-07-03 17:28 | ED ---
General Adult HPI - General Chief complaint: Nausea/Vomiting/Diarrhea Stated complaint: Nausea,Cough Time Seen by Provider: 07/03/22 17:23 Source: patient Mode of arrival: wheelchair Limitations: no limitations - History of Present Illness Initial comments: Patient presents to the ED with her for evaluation. Patient has multiple complaints. Patient states that she has felt nauseated, dizzy and generally weak since about 4 AM this morning. Patient also states that she has had a headache, cough and congestion. Patient denies known fever, trauma or injury, sudden onset of headache, neck pain or stiffness, focal numbness/weakness/neuro deficit, visual changes, sore throat, otalgia, chest pain, dyspnea, palpitations, syncope, abdominal pain, vomiting or diarrhea, bloody or melanotic stool, dysuria or urinary symptoms, leg or calf swelling or pain, or any other symptoms or complaints. Patient denies any known sick contact. Patient states that she last took a dose of Tylenol about 2 hours ago. - Related Data Home Medications Medication Instructions Recorded Confirmed Atorvastatin [Lipitor] 10 mg PO HS 10/16/18 03/28/21 Lisinopril-Hctz 20-25 mg 1 tab PO DAILY 03/28/21 03/28/21 [Zestoretic 20-25] buPROPion SR [Wellbutrin SR] 150 mg PO BID 03/28/21 03/28/21 hydrOXYzine HCL 25 mg PO Q6H PRN 03/28/21 03/28/21 Allergies Allergy/AdvReac Type Severity Reaction Status Date / Time amoxicillin trihydrate Allergy Anaphylaxis Verified 07/03/22 17:15 [From Augmentin] codeine Allergy Unknown Verified 07/03/22 17:15 Childhood ibuprofen [From Motrin] Allergy Anaphylaxis Verified 07/03/22 17:15 latex Allergy Rash/Hives Verified 07/03/22 17:15 potassium clavulanate Allergy Anaphylaxis Verified 07/03/22 17:15 [From Augmentin] Review of Systems ROS Statement: Those systems with pertinent positive or pertinent negative responses have been documented in the HPI. ROS Other: All systems not noted in ROS Statement are negative. Past Medical History Past Medical History: Hyperlipidemia, Hypertension Additional Past Medical History / Comment(s): UTI years ago, thyroid nodule, tonsillitis History of Any Multi-Drug Resistant Organisms: None Reported Past Surgical History: Section, Uterine Ablation Additional Past Surgical History / Comment(s): e-sure coils in tubes instead of cutting/tubal ligation and uterine ablation 2010 Past Anesthesia/Blood Transfusion Reactions: No Reported Reaction Past Psychological History: No Psychological Hx Reported Smoking Status: Former smoker Past Alcohol Use History: None Reported Past Drug Use History: None Reported - Past Family History Mother Family Medical History: Coronary Artery Disease (CAD), Myocardial Infarction (OK) Additional Family Medical History / Comment(s): Mother had a OK at the age of 56yrs and has a cardiac stent. Father Family Medical History: No Reported History Additional Family Medical History / Comment(s): Father is healthy. General Exam Limitations: no limitations General appearance: alert, other (Patient is quite anxious in appearance) Head exam: Present: atraumatic, normocephalic Eye exam: Present: normal appearance, PERRL, EOMI. Absent: nystagmus ENT exam: Present: normal oropharynx, mucous membranes moist, TM's normal bilaterally Neck exam: Present: other (Trachea is in midline; no nuchal rigidity or meningeal signs are present on exam). Absent: tenderness, meningismus Respiratory exam: Present: normal lung sounds bilaterally. Absent: respiratory distress, wheezes, rales, rhonchi, stridor Cardiovascular Exam: Present: normal rhythm, tachycardia, normal heart sounds, other (Normal radial pulses bilaterally) GI/Abdominal exam: Present: soft. Absent: distended, tenderness, guarding Extremities exam: Absent: tenderness, pedal edema, calf tenderness Neurological exam: Present: alert, oriented X3, CN II-XII intact. Absent: motor sensory deficit Psychiatric exam: Present: anxious Skin exam: Present: warm, dry, intact, normal color Course Vital Signs 07/03/22 07/03/22 07/03/22 17:09 17:33 19:29 Temperature 98.0 F 101.1 F H Pulse Rate 126 H 124 H 125 H Respiratory 24 24 20 Rate Blood Pressure 151/85 161/74 147/88 O2 Sat by Pulse 93 L 92 L 88 L Oximetry 07/03/22 07/03/22 19:30 21:02 Temperature 99.8 F H Pulse Rate 122 H 112 H Respiratory 22 20 Rate Blood Pressure O2 Sat by Pulse 91 L 96 Oximetry - Reevaluation(s) Reevaluation #1: 07/03/22 21:21 Patient states that her symptoms have improved with ED treatment. Patient denies development of any new symptoms while in the ED. Patient remains alert and breathing comfortably with clear breath sounds bilaterally. Patient and are aware the patient's test results, including her positive Covid test and finding of right lung pulmonary nodule. She was also made aware of the radiologist's recommendation to have a repeat CT of her chest performed in 12 months' time to follow her pulmonary nodule. She states that she does have a primary care provider who can schedule this for her. Patient was counseled about Covid infection and isolation precautions. She was clearly explained return and follow-up instructions, and she feels comfortable being discharged home at this time. Patient was instructed to follow up closely with her primary care provider. EKG Findings - EKG Comments: EKG Findings:: ED physician interpretation: Sinus tachycardia, ventricular rate 121 bpm, no ectopy, normal HI and QRS intervals, normal QT interval, minimal vol tage criteria for LVH, normal axis, no ST or T-wave abnormality Medical Decision Making - Medical Decision Making I suspect that the patient's symptoms are all due to Covid infection. Patient's labs are otherwise fairly unremarkable. Patient's CT angiography is negative for airspace disease/pulmonary embolism. Patient's symptoms have improved while in the ED. Will discharge patient home with her at this time. - Lab Data Result diagrams: 07/03/22 17:57 07/03/22 17:57 Lab Results 07/03/22 07/03/22 07/03/22 Range/Units 17:57 17:57 17:57 WBC 6.3 (3.8-10.6) k/uL RBC 4.40 (3.80-5.40) m/uL Hgb 14.0 (11.4-16.0) gm/dL Hct 39.4 (34.0-46.0) % MCV 89.5 (80.0-100.0) fL MCH 31.9 (25.0-35.0) pg MCHC 35.6 (31.0-37.0) g/dL RDW 13.1 (11.5-15.5) % Plt Count 170 (150-450) k/uL MPV 8.8 Neutrophils % 83 % Lymphocytes % 4 % Monocytes % 9 % Eosinophils % 2 % Basophils % 1 % Neutrophils # 5.2 (1.3-7.7) k/uL Lymphocytes # 0.2 L (1.0-4.8) k/uL Monocytes # 0.5 (0-1.0) k/uL Eosinophils # 0.1 (0-0.7) k/uL Basophils # 0.1 (0-0.2) k/uL Sodium 134 L (137-145) mmol/L Potassium 3.6 (3.5-5.1) mmol/L Chloride 98 (98-107) mmol/L Carbon Dioxide 27 (22-30) mmol/L Anion Gap 9 mmol/L BUN 8 (7-17) mg/dL Creatinine 0.51 L (0.52-1.04) mg/dL Est GFR (CKD-EPI)AfAm >90 (>60 ml/min/1.73 sqM) Est GFR (CKD-EPI)NonAf >90 (>60 ml/min/1.73 sqM) Glucose 132 H (74-99) mg/dL Calcium 9.1 (8.4-10.2) mg/dL Total Bilirubin 0.3 (0.2-1.3) mg/dL AST 250 H (14-36) U/L ALT 98 H (4-34) U/L Alkaline Phosphatase 112 (38-126) U/L Total Protein 6.7 (6.3-8.2) g/dL Albumin 3.9 (3.5-5.0) g/dL Lipase 71 (23-300) U/L HCG, Qual Not Detected Urine Color Urine Appearance (Clear) Urine pH (5.0-8.0) Ur Specific [place] (1.001-1.035) Urine Protein (Negative) Urine Glucose (UA) (Negative) Urine Ketones (Negative) Urine Blood (Negative) Urine Nitrite (Negative) Urine Bilirubin (Negative) Urine Urobilinogen (<2.0) mg/dL Ur Leukocyte Esterase (Negative) Urine RBC (0-5) /hpf Urine WBC (0-5) /hpf Ur Squamous Epith Cells (0-4) /hpf Urine Bacteria (None) /hpf Urine Mucus (None) /hpf Influenza Type A (PCR) Not Detected (Not Detectd) Influenza Type B (PCR) Not Detected (Not Detectd) RSV (PCR) Not Detected (Not Detectd) SARS-CoV-2 (PCR) Detected A (Not Detectd) 07/03/22 Range/Units 19:27 WBC (3.8-10.6) k/uL RBC (3.80-5.40) m/uL Hgb (11.4-16.0) gm/dL Hct (34.0-46.0) % MCV (80.0-100.0) fL MCH (25.0-35.0) pg MCHC (31.0-37.0) g/dL RDW (11.5-15.5) % Plt Count (150-450) k/uL MPV Neutrophils % % Lymphocytes % % Monocytes % % Eosinophils % % Basophils % % Neutrophils # (1.3-7.7) k/uL Lymphocytes # (1.0-4.8) k/uL Monocytes # (0-1.0) k/uL Eosinophils # (0-0.7) k/uL Basophils # (0-0.2) k/uL Sodium (137-145) mmol/L Potassium (3.5-5.1) mmol/L Chloride (98-107) mmol/L Carbon Dioxide (22-30) mmol/L Anion Gap mmol/L BUN (7-17) mg/dL Creatinine (0.52-1.04) mg/dL Est GFR (CKD-EPI)AfAm (>60 ml/min/1.73 sqM) Est GFR (CKD-EPI)NonAf (>60 ml/min/1.73 sqM) Glucose (74-99) mg/dL Calcium (8.4-10.2) mg/dL Total Bilirubin (0.2-1.3) mg/dL AST (14-36) U/L ALT (4-34) U/L Alkaline Phosphatase (38-126) U/L Total Protein (6.3-8.2) g/dL Albumin (3.5-5.0) g/dL Lipase (23-300) U/L HCG, Qual Urine Color Yellow Urine Appearance Cloudy H (Clear) Urine pH 5.5 (5.0-8.0) Ur Specific [place] 1.021 (1.001-1.035) Urine Protein 1+ H (Negative) Urine Glucose (UA) Negative (Negative) Urine Ketones Negative (Negative) Urine Blood Negative (Negative) Urine Nitrite Negative (Negative) Urine Bilirubin Negative (Negative) Urine Urobilinogen <2.0 (<2.0) mg/dL Ur Leukocyte Esterase Negative (Negative) Urine RBC <1 (0-5) /hpf Urine WBC <1 (0-5) /hpf Ur Squamous Epith Cells 1 (0-4) /hpf Urine Bacteria Rare H (None) /hpf Urine Mucus Rare H (None) /hpf Influenza Type A (PCR) (Not Detectd) Influenza Type B (PCR) (Not Detectd) RSV (PCR) (Not Detectd) SARS-CoV-2 (PCR) (Not Detectd) - Radiology Data Chest x-ray: No acute cardiopulmonary disease/process. CT angiography chest with IV contrast: 1. No evidence of pulmonary embolism. 2. Right lower lobe 5 mm pulmonary nodule. Patient has a low risk no routine follow-up is recommended. Patient meets high risk criteria consider CT chest follow-up in 12 months. 3. Hepatic steatosis. Disposition Clinical Impression: COVID-19 Disposition: HOME SELF-CARE Condition: Stable Instructions (If sedation given, give patient instructions): Fever in Adults (ED), COVID-19 (Coronavirus Disease 2019) (ED) Additional Instructions: Return to the ER immediately should you develop new or worsening pain, shortness of breath/trouble breathing, persistent vomiting, fainting, or new or worsening symptoms. Follow up closely with your primary care provider. Is patient prescribed a controlled substance at d/c from ED?: No Referrals: Ed Marie MD [Primary Care Provider] - 1-2 days Time of Disposition: 21:25
[2022-07-03] MEDS ORDERED: SODIUM CHLORIDE 0.9% 1,000 ML IV STA (17:36)
[2022-07-03] MEDS ORDERED: ONDANSETRON 4 MG/2 ML VIAL IVP STA (17:36)
[2022-07-03] MEDS ORDERED: LORazepam 2 MG/ML INJ IV STA (17:38)
[2022-07-03 18:43] LABS: HCG,Qualitative Serum Not Detected
[2022-07-03 18:44] LABS: ALT 98 U/L (4-34); AST 250 U/L (14-36); African American GFR (CKD) >90 (>60 ml/min/1.73 sqM); Albumin 3.9 g/dL (3.5-5.0); Alkaline Phosphatase 112 U/L (38-126); Anion Gap 9 mmol/L; Blood Urea Nitrogen 8 mg/dL (7-17); Calcium 9.1 mg/dL (8.4-10.2); Carbon Dioxide 27 mmol/L (22-30); Chloride 98 mmol/L (98-107); Glucose 132 mg/dL (74-99); Lipase 71 U/L (23-300); Non-African American GFR(CKD) >90 (>60 ml/min/1.73 sqM); Potassium 3.6 mmol/L (3.5-5.1); Sodium 134 mmol/L (137-145); Total Bilirubin 0.3 mg/dL (0.2-1.3); Total Protein 6.7 g/dL (6.3-8.2)
[2022-07-03 19:03] LABS: Basophils # (A) 0.1 k/uL (0-0.2); Basophils % (A) 1 %; Eosinophils # (A) 0.1 k/uL (0-0.7); Eosinophils % (A) 2 %; HCT 39.4 % (34.0-46.0); Lymphocytes # (A) 0.2 k/uL (1.0-4.8); Lymphocytes % (A) 4 %; MCH 31.9 pg (25.0-35.0); MCHC 35.6 g/dL (31.0-37.0); MCV 89.5 fL (80.0-100.0); Mean Platelet Volume 8.8; Monocytes # (A) 0.5 k/uL (0-1.0); Monocytes % (A) 9 %; Neutrophils # (A) 5.2 k/uL (1.3-7.7); Neutrophils % (A) 83 %; Platelet Count 170 k/uL (150-450); RDW 13.1 % (11.5-15.5); WBC 6.3 k/uL (3.8-10.6)
--- NOTE | 2022-07-03 19:14 | XR ---
EXAMINATION TYPE: XR chest 2V DATE OF EXAM: 07/03/2022 6:24 PM COMPARISON: Chest x-ray 03/28/2021 TECHNIQUE: XR chest 2V . CLINICAL INDICATION:Female, 51 years old with history of pain; FINDINGS: Lungs/Pleura: There is no evidence of pleural effusion, focal consolidation, or pneumothorax. Pulmonary vascularity: Unremarkable. Heart/mediastinum: Cardiomediastinal silhouette is unremarkable. Musculoskeletal: No acute osseous pathology. IMPRESSION: No acute cardiopulmonary disease/process.
[2022-07-03] MEDS ORDERED: ACETAMINOPHEN TAB 500 MG TAB PO STA (19:16)
[2022-07-03 19:57] LABS: Appearance,Urine Cloudy (Clear); Bacteria,Urine Rare /hpf; Bilirubin,Urine Negative (Negative); Blood,Urine Negative (Negative); Color,Urine Yellow; Glucose,Urine (UA) Negative (Negative); Ketones,Urine Negative (Negative); Leukocyte Esterase,Urine Negative (Negative); Mucus,Urine Rare /hpf; Nitrite,Urine Negative (Negative); PH, Urine 5.5 (5.0-8.0); Protein,Urine 1+ (Negative); RBC,Urine <1 /hpf (0-5); Specific Gravity,Urine 1.021 (1.001-1.035); Squamous Epithelial Cell,Urine 1 /hpf (0-4); Urobilinogen,Urine <2.0 mg/dL (<2.0); WBC,Urine <1 /hpf (0-5)
[2022-07-03] MEDS ORDERED: SODIUM CHLORIDE 0.9% 500 ML 500 ML IV ONE (20:15)
--- NOTE | 2022-07-03 21:04 | CT ---
EXAMINATION TYPE: CT chest angio for PE CT DLP: 925 mGycm, Automated exposure control for dose reduction was used. DATE OF EXAM: 07/03/2022 8:43 PM COMPARISON: Chest radiograph from same day. Chest x-ray 03/28/2021. CLINICAL INDICATION:Female, 51 years old with history of Tachycardia, hypoxia, Covid infection; Tachy cardia, hypoxia, Covid + TECHNIQUE/CONTRAST: CTA scan of the thorax is performed with IV Contrast, patient injected with 100ml mL of Isovue 370, p ulmonary embolism protocol. MIP images are created and reviewed. FINDINGS: Pulmonary Artery: There is no evidence for a filling defect within the pulmonary vasculature to sugge st acute pulmonary embolism. The pulmonary artery is of normal size. Lungs/Pleura: No evidence of focal consolidation, pleural effusion or pneumothorax. Right lower lobe 5 mm noncalcified pulmonary nodule (series 501, image 83).. Airway: Large airways are patent. Heart: Heart is within normal limits for size.. Vasculature: No evidence of aortic aneurysm. Mediastinum: No gross evidence of adenopathy. Musculoskeletal: Mild degenerative disc disease changes are present throughout the thoracolumbar spin e. Soft Tissues: Unremarkable. Lower neck: No significant findings. Upper Abdomen: Diffuse low-attenuation to the liver parenchyma. Splenomegaly. IMPRESSION: 1. No evidence of pulmonary embolism. 2. Right lower lobe 5 mm pulmonary nodule. If patient has a low risk no routine follow-up is recommen ded. If patient meets high-risk criteria consider CT chest follow-up in 12 months. 3. Hepatic steatosis.
[2022-07-03 22:57] VITALS: BP 147/81; PULSE 103; RESP 22; TEMP 98.9
== END 2022-07-03 22:50 | disposition home or self-care (01) ==
LOC: EC 16:53
DX: U07.1 COVID-19 (principal); I10 Essential (primary) hypertension; E78.5 Hyperlipidemia, unspecified; Z88.0 Allergy status to penicillin; Z88.1 Allergy status to other antibiotic agents; Z88.6 Allergy status to analgesic agent; Z91.040 Latex allergy status; Z87.891 Personal history of nicotine dependence; Z79.899 Other long term (current) drug therapy
CPT/HCPCS: 99285; 96374; 96375; 96361 ×3; 36415; 93005; 80053; 83690; 85025; 81001; 84703; 87636; 71046; 71275; J2060; J2405; Q9967

== ENCOUNTER → 2023-08-03 | Outpatient (CLI) | payer BC ==
--- NOTE | 2023-08-03 18:31 | FL ---
Sialogram INDICATION: Swelling FINDINGS: The procedure was explained to the patient. Patient was placed on the fluoroscopy table in the supine view. The left submandibular duct was localized. Under fluoroscopic observation contrast was adminis tered in a retrograde fashion. Multiple fluoroscopic spot imaging and real-time observation was perfo rmed. Fluoroscopy time: 50 seconds. Total dose area product (DAP) in uGy*m?, mGy*cm? (or similar): 2302.03 Images obtained: 180. The distal left submandibular duct is enlarged and appears to contain a filling defect with diminishe d contrast in relation to the remaining prominent submandibular duct. This enlarged portion of the senior bmandibular duct appears to correlate with the fullness identified on physical exam. The more distal portions of the submandibular duct are patent without filling defects. Following removal of the godfrey ter there is spontaneous drainage. Patient was encouraged to have shania which had prompt drainage of the contrast. Discharge instructions were discussed with the patient. Patient was encouraged to eat shania to the IMPRESSION: 1. Appears to be a filling defect in the distal left submandibular duct just below the lingula orific e
== END | disposition home or self-care (01) ==
LOC: RADUSWWP 12:52
PROVIDERS: ATTEND Otolaryngology
DX: R22.1 Localized swelling, mass and lump, neck (principal)
CPT/HCPCS: 70390; Q9966

== ENCOUNTER → 2023-08-23 | Outpatient (CLI) | payer BC | END | disposition home or self-care (01) | LOC: LABPAT 11:40 | PROVIDERS: ATTEND Otolaryngology | DX: Z01.818 Encounter for other preprocedural examination (principal); I10 Essential (primary) hypertension; K11.5 Sialolithiasis; R94.31 Abnormal electrocardiogram [ECG] [EKG]; Z79.899 Other long term (current) drug therapy | CPT/HCPCS: 36415; 84132; 93005 ==

== ENCOUNTER 2023-08-25 08:27 | Day surgery (SDC) | payer BC ==
--- NOTE | 2023-08-24 17:46 | HP ---
HISTORY AND PHYSICAL CHIEF COMPLAINT: Sialolithiasis of the left [place]'s duct of the left submandibular gland. HISTORY OF PRESENT ILLNESS: This patient is a 52-year-old female, who was originally referred to my office because of swollen lymph nodes. The patient states that in April of 2023, she developed significant swelling of her neck and also tonsillitis. She was placed on a course of oral steroids and antibiotics and eventually she was placed on Cleocin. The swelling resolved somewhat but not completely. She states that she feels that her tonsils are still enlarged. Her family physician thought that she might possibly have a cyst-like lesion beneath her tongue. CT scan of the neck was essentially unremarkable. There was no evidence of any significant lymphadenopathy in her neck. The patient is a nonsmoker. She states that she normally has a sore throat once a year or twice a year. Her present sore throat has been there since April of 2023. At the time that she was seen in my office, clinical examination of the head and neck revealed 3 to 4+ tonsillar hypertrophy and a suspicious lesion was noted on the floor of the mouth in the region of [place]'s duct. Palpation of this area suggested that this might possibly be a stone within the duct. A sialogram was performed and this revealed evidence of a filling defect (stone) in the distal portion of the left submandibular duct (V[place]'s duct). It was recommended the patient undergo marsupialization of the left V[place]'s duct and removal of the stone. PAST MEDICAL HISTORY: Reveals she has allergies to codeine, ibuprofen, Flexeril, and Augmentin. She has taken tramadol in the past. CURRENT MEDICATIONS: Include metformin, atorvastatin and lisinopril. REVIEW OF SYSTEMS: CARDIOVASCULAR: Positive for hypertension. METABOLIC/ENDOCRINE: Positive for hypercholesterolemia and type 2 diabetes mellitus. The remainder of the review of systems is unremarkable. PREVIOUS SURGERIES: Include ablation of lesions in the uterus. She is 1 para, 1 , 0 , 0 miscarriage. PHYSICAL EXAMINATION: GENERAL: The patient is a pleasant 52-year-old female, who is alert and cooperative. HEENT AND NECK: The patient is normocephalic. Tympanic membranes are normal. Middle ear space is free of any fluid or infection. Pupils equal, round, and reactive to light and accommodation. Extraocular movements within normal limits. Intranasal examination reveals moderate septal deviation with compensatory hypertrophy of inferior turbinates. Moderate amount of mucus on the mucous membrane draining down the posterior pharynx. Examination of the oropharynx reveals that there is a palpable mass, which is quite hard and is located in the left [place]'s duct. Palpation of neck is negative for any neck mass or lymphadenopathy. Cranial nerves 2 through 12. Remainder of the head and neck exam is unremarkable. CHEST AND CARDIOVASCULAR: Both lung ramos are clear to percussion and auscultation. The patient is in regular sinus rhythm. S1, S2 present. No murmurs. Peripheral pulses are bilaterally symmetrical. ABDOMEN: There is no evidence of any masses, megaly or tenderness. The abdomen is soft. SKIN: Unremarkable. MUSCULOSKELETAL AND NEUROLOGIC: Unremarkable. PELVIC/RECTAL: Deferred at this time because the patient has this done on a regular basis at her family physician's office. The remainder of physical exam is unremarkable. IMPRESSION: Sialolithiasis of left Viji's duct/left submandibular gland. PLAN: The patient is scheduled undergo marsupialization of left [place]'s duct under general anesthesia in the a.m. Attention, RNs in the pre-surgical area: I have ordered for this patient to receive 1000 mg of Ofirmev IV to be given once an IV line has been established. In addition, I have ordered for this patient to receive 1 gm of Rocephin to be given once an intravenous line has been established. If the Pharmacy Department sends a different pre-surgical prophylactic antibiotic to the pre-surgical area for this patient, please cancel that order and return the medication to the Pharmacy Department. Also, make sure that the patient's account is credited appropriately. I have discussed the risks, benefits and alternative therapies for the above- mentioned procedure and for both sedation/analgesia as well as necessary blood product administration, if indicated, as they pertain to this patient. The patient has indicated her understanding and acceptance of the risks and procedures discussed. MMODL / IJN: [id number] / MTDD
[~2023-08-25 08:27] MED LIST: DEXAMETHASONE SOD PHOSPHATE 4 MG/ML 1 ML VIAL IV ONE; HYDROmorphone 0.5 MG/0.5 ML SYRINGE IVP PRN; LACTATED RINGERS 1,000 ML IV SCH; LIDOCAINE 1% (10MG/ML) FOR IV START INTRADERMA PRN; MIDAZOLAM 2 MG/2 ML VIAL IV PRN; ONDANSETRON 4 MG/2 ML VIAL IVP ONE; Pre Op ABX Message 1 EACH MISC MISCELLANE ONE
[2023-08-25] MEDS ORDERED: ACETAMINOPHEN IV (For NPO) 1,000 MG/100 ML VIAL IVPB ONE (09:10)
[2023-08-25 09:13] VITALS: TEMP 97.8
[2023-08-25 09:13] LABS: Glucose,Whole Blood 160 mg/dL (70-110)
[2023-08-25] MEDS ORDERED: DEXAMETHASONE SOD PHOSPHATE 4 MG/ML 1 ML VIAL IVP ONE (09:20)
[2023-08-25] MEDS ORDERED: ONDANSETRON 4 MG/2 ML VIAL IVP ONE (09:20)
[2023-08-25] MEDS ORDERED: MIDAZOLAM 2 MG/2 ML VIAL IVP ONE (09:22)
[2023-08-25] MEDS ORDERED: ACETAMINOPHEN IV (For NPO) 1,000 MG in EMPTY BAG 1 BAG IVPB ONE (09:45)
[2023-08-25] MEDS ORDERED: PHENYLEPHRINE 10 MG/ML VIAL ONE (10:09)
[2023-08-25] MEDS ORDERED: GLYCOPYRROLATE 0.2 MG/ML 2 ML VIAL ONE (10:09)
[2023-08-25] MEDS ORDERED: PROPOFOL 10 MG/ML 20 ML VIAL IV ONE (10:09)
[2023-08-25] MEDS ORDERED: MIDAZOLAM 2 MG/2 ML VIAL ONE (10:09)
[2023-08-25] MEDS ORDERED: NEOSTIGMINE 1 MG/ML 10 ML VIAL ONE (10:09)
[2023-08-25] MEDS ORDERED: SUCCINYLCHOLINE CHLORIDE 200 MG/10 ML VIAL IV ONE (10:09)
[2023-08-25] MEDS ORDERED: ePHEDrine 50 MG/ML 1 ML VIAL ONE (10:09)
[2023-08-25] MEDS ORDERED: LIDOCAINE 1% INJ 10MG/ML (20 ML MDV) ONE (10:09)
[2023-08-25] MEDS ORDERED: ROCURONIUM 10 MG/ML (5 ML VIAL) IV ONE (10:09)
[2023-08-25] MEDS ORDERED: fentaNYL (PF) 50 MCG/ML 2 ML AMP ONE (10:09)
[2023-08-25] MEDS ORDERED: LIDOCAINE 1%-EPI 1:100,000 50 ML VIAL SUBMUCOSAL ONE ×2 (11:05→11:34)
[2023-08-25 12:13] LABS: Glucose,Whole Blood 209 mg/dL (70-110)
[2023-08-25] MEDS ORDERED: LACTATED RINGERS 1,000 ML IV ONE (13:16)
[2023-08-25 13:40] VITALS: RESP 16
[2023-08-25] MEDS ORDERED: DEXAMETHASONE SOD PHOSPHATE 10 MG/ML 1 ML VIAL IVP ONE (13:49)
[2023-08-25 14:05] LABS: Glucose,Whole Blood 204 mg/dL (70-110)
[2023-08-25 14:09] VITALS: BP 102/59; PULSE 85
--- NOTE | 2023-08-28 23:06 | OP ---
OPERATIVE REPORT DATE OF SERVICE : 08/25/2023 PREOPERATIVE DIAGNOSIS: Sialolithiasis (impacted stone) of left Viji's duct of the left submandibular gland. POSTOPERATIVE DIAGNOSIS: Sialolithiasis (impacted stone) of left Viji's duct of the left submandibular gland. ANESTHESIA: General. PROCEDURE PERFORMED: Marsupialization of left [place]'s duct of the left submandibular gland. COMPLICATIONS: None. ESTIMATED BLOOD LOSS: Less than 3 mL. DESCRIPTION OF PROCEDURE: The patient was placed on the operating table in supine position. After uneventful induction and endotracheal intubation, satisfactory general anesthesia was obtained. Next, the patient's head was draped in usual and customary fashion. Following this, a pair of medium dental bite blocks were inserted in the left and right buccal sulcus respectively. Next, the tip of the patient's tongue was grasped with a towel clip and elevated superiorly and posteriorly, thus exposing the orifices of the left and right [place]'s duct of the submandibular glands. Manual palpation of the floor of the mouth reveals a large impacted stone that was located in the left [place]'s duct distal to the left submandibular gland. No injection was used at this time to avoid distorting the soft tissues. Using the Zeiss operating microscope and multiple sizes of lacrimal probes, the opening/orifice of the left Viji's duct was located. It was subsequently dilated by inserting multiple sizes of lacrimal probes into the left orifice. Next, using a pair of sharp iris scissors with 1 of the smaller lacrimal probes in place, the duct was subsequently incised superiorly (marsupialized) beginning at the orifice and extending up to and over a portion of the impacted stone. Next, a pair of mosquito stats was used to carefully free up the stone and gradually nugget. The stone was subsequently extricated without difficulty in an atraumatic fashion. The patient had requested that the stone be saved and given to her after surgery and therefore was placed in a specimen cup and not sent to pathology. Once the stone was removed, the left submandibular gland was massaged externally and this caused a significant amount of thick saliva fluid to be extruded. However, no further stones were extruded. At this point, the duct was marsupialized by using 5-0 rapid absorbing Vicryl to suture the duct open by suturing it in an interrupted fashion to the mucosa of the floor of the mouth. That is, say the incision was not closed. At this point, the procedure was terminated. There were no intraoperative complications. Estimated blood loss was less than 3 mL. The patient tolerated the procedure well and was returned to the recovery room in satisfactory condition. Prior to discharge from the operating room, approximately 2 mL of 1% xylocaine with epinephrine, 1:100,000 was infiltrated in the soft tissue around the [place]'s duct. The patient was returned to recovery room in satisfactory condition. MMODL / IJN: [id number] /
== END 2023-08-25 14:15 | disposition home or self-care (01) ==
LOC: OR 08:27
PROVIDERS: ATTEND Otolaryngology
DX: K11.5 Sialolithiasis (principal); K11.20 Sialoadenitis, unspecified; Z88.5 Allergy status to narcotic agent; Z88.6 Allergy status to analgesic agent; Z88.8 Allergy status to other drugs, medicaments and biological substances; Z88.1 Allergy status to other antibiotic agents; Z88.0 Allergy status to penicillin
CPT/HCPCS: 81025; 42440; J2250; J0171; J0330; J1100 ×2; J2710; J2405; J2001; J3010; J0131; J2704; J1170; J2371